=== PATIENT | female | born 1945 | race Caucasian/White ===

== ENCOUNTER → 2024-06-08 09:57 | Outpatient (REF) | payer MEDICARE, OTHER, SELFPAY ==
--- OUTSIDE RECORDS SUMMARY | 2024-06-08 10:42 | XMS_ITS | Encounter Summary ---
Author Organization [facility] Health Address [address] [place] [address] Care Team Providers Care Benchroom Shop Optician Name Role Phone Unavailable Primary Care Provider Unavailabl e Encounter Details Date Type Department Care Team (Late st Contact Info) Description 07/18/2019 Lab Requisition [facility] DermPath Lab [address] [place] [address] Asif Leal MD [address] [place] [phone] Social History Tobacco Use Types Packs/Day Years Used Date Smoking Tobacco: Former Cigarettes 1 35 1 06/25/1972 - 04/24/2008 Smokeless Tobacco: Never Alcohol Use Standard Drinks/Week Comments Yes 0 (1 standard drink = 0.6 oz pur e alcohol) social Sex and Gender Information Value Date Recorded Sex Assigned at Not on file Gender Identity Not on file Sexual Orientation Not on file documented as of this encounter Plan of Treatment Not on file documented as of this encounter Procedures Procedure Name Priority Date/Time Associated Diagnosis Comments DERMATOPATHOLOGY Routine 07/16/2019 12:0 0 AM CDT documented in this encounter Results * DERMATOPATHOLOGY (07/16/2019 12:00 AM CDT) Case Report Dermatopathology Report Case: [id number] Authorizing Provider: Asif Leal MD Collected: 07/16/2019 12:00 AM Ordering Location: [facility] Derm[facility] Lab Received: 07/18/2019 08:32 AM Pathologist: Myrna Maher MD Specimens: A) - Skin, right medial cheek B) - Skin, right distal forearm C) - Skin, left distal forearm 0 5:43 PM [facility] DERMATOPATHOLOGY LABORATORY Final Diagnosis Specimen A. SKIN, right medial cheek: HYPERPLASTIC (HYPERTROPHIC) ACTINIC KERATOSIS; EXTENDING TO THE BASE OF THE SPECIMEN (L57.0) (see microscopic description and comment) Specimen B. SKIN, right distal forearm: BENIGN VERRUCOUS KERATOSIS, INFLAMED (L82.1) Specimen C. 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 B: SK, lichenoid keratosis, SCCIS. C: R/O SCC. 0 5:43 PM [facility] DERMATOPATHOLOGY LABORATORY Gross Description Specimen A: Received is one formalin filled container labeled with the patient's name and designated right medial cheek. The specimen consists of a shave biopsy measuring 0p0a0cq. Jar 0. Specimen B: Received is one formalin filled container labeled with the patient's name and designated right distal forearm. The specimen consists of a shave biopsy measuring 2g1r4wz. Jar 0. Specimen C: Received is one formalin filled container labeled with the patient's name and designated left distal forearm. The specimen consists of a shave biopsy (2 pieces) measuring 8d8a1bs & 6f6y3jj. Jar 0. 0 5:43 PM [facility] DERMATOPATHOLOGY LABORATORY Microscopic Description Specimen A. SKIN, right medial cheek: There is hyperkeratosis alternating with parakeratosis. There is epidermal hyperplasia with disorderly maturation of keratinocytes with nuclear pleomorphism confined to the lower half of the epidermis. This process extends to the base of the specimen. COMMENT: A squamous cell carcinoma cannot be ruled out. Specimen B. SKIN, right distal forearm: Sections show hyperkeratosis, papillomatosis, hypergranulosis, and acanthosis. Inflammatory cells are present within the dermis. These histological findings can be seen in a verruca vulgaris or a seborrheic keratosis. Specimen C. SKIN, left distal forearm: The specimen is tangentially sectioned. The epidermis shows parakeratosis, full thickness disorderly maturation of keratinocytes, mitoses at different levels, and dyskeratotic cells. The lesion extends to the base of the biopsy. COMMENT: An invasive squamous cell carcinoma cannot be ruled out. 0 5:43 PM CDT DERMATOPATHOLOGY LABORATORY Disclaimer An external and internal positive and negative controls are appropriate for the histochemical, immunohistochemical and immunofluorescence stain(s) in this case (if any), except where stated explicitly. The performance characteristics of the stain(s) cited in this report were developed and its performance characteristic determined by the Dermatopathology Laboratory at [facility], directed by Dr. Mino Nickerson. These tests need not be, and therefore are not, approved by the [place] Food and Drug Administration. The tests are used for clinical purposes. Billing Codes Specimen Charges Stain Charges 69797 89530 36106 1 1 1 0 5:43 PM CDT DERMATOPATHOLOGY LABORATORY Embedded Images 0 5:43 PM CDT DERMATOPATHOLOGY LABORATORY Pathology/Cytology TISSUE SPECIMEN FROM SKIN / Unknown 07/16/2019 07/18/2019 8:32 AM CDT Miscellaneous samples (specimen) TISSUE SPECIMEN FROM SKIN / Unknown 07/16/2019 07/18/2019 8:32 AM CDT Miscellaneous samples (specimen) TISSUE SPECIMEN FROM SKIN / Unknown 07/16/2019 07/18/2019 8:32 AM CDT Asif Leal MD LAB - PATHOLOGY/CYTO LOGY ORDERABLES DERMATOPATHOLOGY LABORATORY [facility] - Department of Dermatology [address] [place] [address], [address] [place] [address], [facility] [phone] documented in this encounter Visit Diagnoses Not on filedocumented in this encounter
--- OUTSIDE RECORDS SUMMARY | 2024-06-08 10:42 | XMS_ITS | Patient Health Summary ---
Author Organization [facility] Address [address] [facility] [place] [address] Care Team Providers Care Senior Manager Asset Protection Name Role Phone Unavailable Primary Care Provider Unavailabl e Note from [facility] [employer] [facility],non-owned Affiliates and Associated Physician Practices is amultiple site organization consisting of ambulatory clinics and hospital sitesin [place], [place] and [place]. This disclosure is being madepursuant to the Care Everywhere program and may not contain all information available regarding this patient. Last updated 18.[facility] [employer] Allergies * Nickel(Itching) Medications * Be aware that medications may not be up to date on this document. Alwaysverify current medications with the patient. * azaTHIOprine (IMURAN) 50 MG tablet(Started 05/29/2010) Take 50 mg by mouth daily after breakfast. * betaxolol (BETOPTIC-S) 0.25 % ophthalmic suspension(Started 05/29/2010) Instill 1 Drop into both eyes daily after breakfast. * pilocarpine (PILOPINE HS) 4 % ophthalmic gel(Started 05/29/2010) Instill into both eyes every 2 days. Uses @@ night * buPROPion XL 24hr (WELLBUTRIN-XL) 300 MG tablet Take 300 mg by mouth every morning. * aspirin EC (ECOTRIN) 81 MG tablet Take 81 mg by mouth daily. Instructed patient to stop 1 week before surgery. * citalopram (CELEXA) 40 MG tablet(Started 05/29/2010) Take 40 mg by mouth daily after breakfast. * oxycodone, immediate release, (ROXICODONE) 5 MG tablet(Started 06/11/2010) Take 1-2 Tabs by mouth every 6 hours as needed for Pain. Active Problems No known active problems Immunizations * INFLUENZA VACCINE(Given 02/06/2010) * PNEUMOCOCCAL PPSV23(Given 06/12/2007) Social History Tobacco Use Types Packs/Day Years Used Date Smoking Tobacco: Former Cigarettes 1 35 1 06/25/1972 - 04/24/2008 Smokeless Tobacco: Never Alcohol Use Standard Drinks/Week Comments Yes 0 (1 standard drink = 0.6 oz pur e alcohol) social Sex and Gender Information Value Date Recorded Sex Assigned at Not on file Gender Identity Not on file Sexual Orientation Not on file Last Filed Vital Signs Vital Sign Reading Time Taken Comments Blood Pressure 116/61 06/12/2010 10:29 AM DINING ROOM HOSTESS Pulse 87 06/12/2010 10:29 AM DINING ROOM HOSTESS Temperature 36.8 C (98.3 F) 06/12/2010 10:29 AM DINING ROOM HOSTESS Respiratory Rate 16 06/12/2010 10:2 9 AM DINING ROOM HOSTESS Oxygen Saturation 95% 06/12/2010 10: 29 AM DINING ROOM HOSTESS Inhaled Oxygen Concentration - - Weight 87.5 kg (192 lb 14.4 oz) 06/09/2010 5:48 AM DINING ROOM HOSTESS Height 162.6 cm (5' 4 ) 06/09/2010 5:48 AM DINING ROOM HOSTESS Body Mass Index 33.11 06/09/2010 5:48 AM DINING ROOM HOSTESS Procedures * DERMATOPATHOLOGY(Performed 07/16/2019) * XR HIP RIGHT 2VW OR MORE(Performed 06/07/2011) Performed for S/P prosthetic total arthroplasty of the hip * LAB RESULTS ORDER(Performed 06/13/2010) * CARDIAC EKG ORDER(Performed 06/13/2010) * BASIC METABOLIC PANEL (CALCIUM TOTAL)(Performed 06/11/2010) * HGB HCT PANEL(Performed 06/11/2010) * BASIC METABOLIC PANEL (CALCIUM TOTAL)(Performed 06/10/2010) * HEPATIC FUNCTION PANEL(Performed 06/10/2010) * HGB HCT PANEL(Performed 06/10/2010) * XR PELVIS 1 OR 2VW(Performed 06/09/2010) Performed for Osteoarth NOS-pelvis Results * DERMATOPATHOLOGY (07/16/2019 12:00 AM CDT) Case Report Dermatopathology Report Case: [id number] Authorizing Provider: Asif Leal MD Collected: 07/16/2019 12:00 AM Ordering Location: [facility] DermPath Lab Received: 07/18/2019 08:32 AM Pathologist: Myrna Maher MD Specimens: A) - Skin, right medial cheek B) - Skin, right distal forearm C) - Skin, left distal forearm 0 5:43 PM [facility] DERMATOPATHOLOGY LABORATORY Final Diagnosis Specimen A. SKIN, [...] microscopic description and comment) 0 5:43 PM [facility] DERMATOPATHOLOGY LABORATORY Clinical History A: SCC vs SCCIS vs wart. B: SK, lichenoid keratosis, SCCIS. C: R/O SCC. 0 5:43 PM T DERMATOPATHOLOGY LABORATORY Gross Description Specimen A: Received is one formalin filled container labeled with the patient's name and designated right medial cheek. The specimen consists of a shave biopsy measuring 4y6d4mk. Jar 0. Specimen B: Received is one formalin filled container labeled with the patient's name and designated right distal forearm. The specimen consists of a shave biopsy measuring 0s0t5qb. Jar 0. Specimen C: Received is one formalin filled container labeled with the patient's name and designated left distal forearm. The specimen consists of a shave biopsy (2 pieces) measuring 0m3f3ba & 1r0y8el. Jar 0. 0 5:43 PM [facility] DERMATOPATHOLOGY LABORATORY Microscopic Description Specimen A. SKIN, [...] characteristic determined by the Dermatopathology Laboratory at [facility], directed by Dr. Mino Nickerson. These tests need not be, and therefore are not, approved by the [place] Food and Drug Administration. The tests are used for clinical purposes. Billing Codes Specimen Charges Stain Charges 58243 [id number] [id number] 1 1 1 0 5:43 PM CDT [...] LAB - PATHOLOGY/CYTO LOGY ORDERABLES DERMATOPATHOLOGY LABORATORY [facility] - Department of Dermatology [address] [place] [address], 5th [place] [address], [facility] [phone] * XR HIP 2+ VW RIGHT (06/07/2011 4:49 PM DINING ROOM HOSTESS) Anatomical Region Laterality Modality Pelvis, Lower Extremity Other Narrative 06/07/2011 4:49 PM DINING ROOM HOSTESS RT Alec 06/07/2011 4:49 PM See progress notes for results Procedure Note Mary Turner, RT - 06/07/2011 4:49 PM CST See progress notes for results Kg Gallo IV, MD DIAGNOSTIC IMAGING O RDERABLES * LAB RESULTS ORDER (06/13/2010 11:32 AM DINING ROOM HOSTESS) Narrative Procedure Note Document, Scanned - 06/13/2010 10:38 AM DINING ROOM HOSTESS Scanned Document LAB - THERAPEUTIC DR UG MONITORING ORDERABLES * CARDIAC EKG ORDER (06/13/2010 11:32 AM DINING ROOM HOSTESS) Narrative Procedure Note Document, Scanned - 06/13/2010 10:38 AM DINING ROOM HOSTESS Scanned Document CARDIAC SERVICES ORD ERABLES * (ABNORMAL) HGB HCT PANEL (06/11/2010 3:30 AM DINING ROOM HOSTESS) Only the most recent of2 resultswithin the time period is included. Pathologist [facility] Hemoglobin 10.3(L) 12.0 - 16.0 gm/dl [facility] Hematocrit 32.5(L) 36.0 - 48.0 % [facility] BLOOD SPECIMEN / Unknown 06/11/2010 3:30 AM DINING ROOM HOSTESS 06/11/2010 3:57 AM DINING ROOM HOSTESS Fransisco Singer MD LAB - HEMATOLOGY ORD ERABLES Performing Organization Address City/State/[facility] Co de Phone Number [facility] [address] [place] [address] * (ABNORMAL) BASIC METABOLIC PANEL (CALCIUM TOTAL) (06/11/2010 3:30 AM DINING ROOM HOSTESS) Only the most recent of2 resultswithin the time period is included. Pathologist [facility] BUN 23(DH) 7.0 - 17.0 mg/dl [facility] Sodium 135(L) 137 - 145 mmol/L [facility] Potassium 4.5 3.6 - 5.0 mmol/L [facility] Chloride 100 98.0 - 107.0 mmol/L [facility] CO2 31(H) 22.0 - 30.0 mEq/L [facility] Anion Gap 3 [facility] Glucose 113(H) 70 - 105 mg/dl [facility] Creatinine 0.8 0.52 - 1.05 mg/dl [facility] Calcium 8.9(DE) 8.4 - 10.2 mg/dl [facility] eGFR by MDRD 72.21 ml/min/1.7 3m2 [facility] BLOOD SPECIMEN / Unknown 06/11/2010 3:30 AM DINING ROOM HOSTESS 06/11/2010 3:57 AM DINING ROOM HOSTESS Fransisco Singer MD LAB - [facility]Y [facility] Performing Organization Address [facility] de Phone Number [facility] [id number] [place] [id number] * (ABNORMAL) HEPATIC FUNCTION PANEL (06/10/2010 3:15 AM DINING ROOM HOSTESS) AST 49(H) 14.0 - 36.0 U/L [facility] ALT 37 9.0 - 52.0 U/L [facility] Alkaline Phosphatase 59 38.0 - 126.0 U/L [facility] Bilirubin Total 0.3 0.2 - 1.3 mg/dl [facility] Albumin 3.9 3.5 - 5.0 gm/dl [facility] Bilirubin Indirect 0.3 0.0 - 1.1 mg/dl [facility] Bilirubin Direct 0.0 0.0 - 0.3 mg/dl [facility] Protein Total 6.8 6.3 - 8.2 gm/dl [facility] BLOOD SPECIMEN / Unknown 06/10/2010 3:15 AM DINING ROOM HOSTESS 06/10/2010 3:40 AM DINING ROOM HOSTESS Fransisco Singer MD LAB - CHEMISTRY JANE BO Performing Organization Address [facility] de Phone Number [facility] [address] [place] [address] * XR PELVIS 1 OR 2 VW (IN PACU) (06/09/2010 10:41 AM DINING ROOM HOSTESS) Anatomical Region Laterality Modality Pelvis Radiographic Leann ging 06/09/2010 12:4 9 PM DINING ROOM HOSTESS Impressions 06/09/2010 12:49 PM DINING ROOM HOSTESS Right total hip arthroplasty Narrative 06/09/2010 12:49 PM DINING ROOM HOSTESS INDICATION: Pelvic pain Single AP view of the pelvis shows a right total hip arthroplasty. There is no fracture. There is degenerative change of the left hip joint. Surgical drains are noted. No complication is evident. Procedure Note Rylie Allan MD - 06/09/2010 INDICATION: Pelvic pain Single AP view of the pelvis shows a right total hip arthroplasty. There is no fracture. There is degenerative change of the left hip joint. Surgical drains are noted. No complication is evident. IMPRESSION Right total hip arthroplasty Fransisco Singer MD DIAGNOSTIC IMAGING O RDERABLES
--- OUTSIDE RECORDS SUMMARY | 2024-06-08 10:42 | XMS_ITS | Encounter Summary ---
Author Organization [facility] Address [address] [place] [address] Care Team Providers Care Retrieval Specialist Name Role Phone Darling Salgado MD Primary Care Provider [phone] Mary Anne Armando OD Unavailable Francis Zapata MD Unavailable [phone] Gianni Diaz MD Unavailable Vicki Roe MD Unavailable [phone] Reason for Visit * Reason Onset Date Comments Diarrhea 06/07/2024 Encounter Details Date Type Department Care Team (Late st Contact Info) Description 06/07/2024 Telephone [facility] [address] [place] [address] Darling Salgado MD [address] [place] [address] Diarrhea Social History Tobacco Use Types Packs/Day Years Used Date Smoking Tobacco: Former Smokeless Tobacco: Never Comments:Quit 2001 - 2003 Alcohol Use Standard Drinks/Week Comments Yes 2 (1 standard drink = 0.6 oz pur e alcohol) occassional AUDIT-C Answer Date Recorded Q1: How often do you have a drink containing alcohol? Never 06/23/2023 Q2: How many drinks containi ng alcohol do you have on a typical day when you are drinking? Patient does not drink Q3: How often do you have si x or more drinks on one occasion? Never 06/23/2023 PHQ-2 Answer Date Recorded PHQ-2 Total Score (If total score is 3 or more points, staff should administer the PHQ-9) 0 05/15/2024 Personal Safety Answer Date Recorded Have you ever been in or are you currently in a harmful physical or emotional relationship or is someone making you feel afraid or unsafe? 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 She voiced understanding. Advised her to call if she does not have any improvement and she voiced understanding. PAPER PRINTER * Telephone Encounter - Leonid Bui RN - 06/07/2024 3:26 PM CST Attempted to call pt Na/tobias latify Cbn#[phone] PAPER PRINTER * Telephone Encounter - Leonid Bui RN - 06/07/2024 1:32 PM CST Attempted to call pt Na/line bhavyay Cbn#[phone] PAPER PRINTER * Telephone Encounter - Marlene Kelley NP - 06/07/2024 11:02 AM CST This is likely overflow constipation due to her mounjaro use. She should hold this week's dose to see if symptoms improve. And try miralax 1-3 times daily. avoid nuts, beans, broccoli, cauliflower, green beans, potato skins, and bran. Stay hydrated. Encourage natural laxatives such as prunes, applejuice, smooth move tea, coffee, and probiotics. PAPER PRINTER * Telephone Encounter - Missy Chang RN - 06/07/2024 10:23 AM WALLPAPER PRINTER TOGKL: Called patient about diarrhea. Symptoms started yesterday: Explosive diarrhea-5 x yesterday She has also had a lot of belching with a horrible smell. Has had some nausea but it feels better after having a BM. She said late last night she had some formation to her stools and she has not had any diarrhea since then. Patient said she has noticed a horrible smell with the diarrhea. Denied vomiting. She is keeping fluids down and following a BRAT diet. Please advise PAPER PRINTER * Telephone Encounter - Lucy Mahajan - 06/07/2024 8:20 AM CST Pt is calling because she is having explosive diarrhea. This has been happing off and on for a little while. Pt stated this has been happing off and on for a while now. [facility]# [phone]- pt's cell PAPER PRINTER documented in this encounter Plan of Treatment Not on file documented as of this encounter Visit Diagnoses Not on filedocumented in this encounter Care Teams Retrieval Specialist Relationship Specialty Start Date End Date Darling Salgado MD PCP - General 07/30/16 Mary Anne Armando OD Washer Hand 03/09/17 Francis Zapata MD Consulting Physician Pulmonary Disease 03/09/17 Gianni Diaz MD [address] [place] [address] [place] [address] Consulting Physician Gastroenterology 03/14/23 Vicki Roe MD [address] [place] [address] Referring Physician Dermatology 06/14/23 documented as of this encounter
--- OUTSIDE RECORDS SUMMARY | 2024-06-08 10:42 | XMS_ITS | Clinical Summary ---
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
--- OUTSIDE RECORDS SUMMARY | 2024-06-08 10:42 | XMS_ITS | Referral Summary ---
Author Organization [facility] [employer] Address [address] [place] [address] Care Team Providers Care Equipment Operation Instructor Name Role Phone Unavailable Primary Care Provider Unavailabl e Source Comments [facility] [employer],non-owned Affiliates and Associated Physician Practices is amultiple site organization consisting of ambulatory clinics and hospital sitesin [place], [place], [place] and [place]. This disclosure is being madepursuant to the Care Everywhere program and may not contain all information available regarding this patient. Last updated 18.[facility] [employer] Allergies Active Allergy Reactions Criticality Noted Date Comments Nickel Itching 05/29/2010 Medications * Be aware that medications may not be up to date on this document. Alwaysverify current medications with the patient. Medication Sig Dispensed Refills Start Date End Date Status azaTHIOprine (IMURAN) 50 MG tablet Take 50 mg by mouth daily after breakfast. 05/29/2010 Active betaxolol (BETOPTIC-S) 0.25 % ophthalmic suspension Instill 1 Drop into both eyes daily after breakfast. 05/29/2010 Active pilocarpine (PILOPINE HS) 4 % ophthalmic gel Instill into both eyes every 2 days. Uses @@ night 05/29/2010 Active buPROPion XL 24hr (WELLBUTRIN-XL) 300 MG tablet Take 300 mg by mouth every morning. Active aspirin EC (ECOTRIN) 81 MG tablet Take 81 mg by mouth daily. Instructed patient to stop 1 week before surgery. Active citalopram (CELEXA) 40 MG tablet Take 40 mg by mouth daily after breakfast. 05/29/2010 Active oxycodone, immediate release, (ROXICODONE) 5 MG tablet Take 1-2 Tabs by mouth every 6 hours as needed for Pain. 80 Tab 0 06/11/2010 Active Active Problems No known active problems Immunizations Name Administration Dates Next Due INFLUENZA VACCINE 02/06/2010 PNEUMOCOCCAL PPSV23 06/12/2007 Social History Tobacco Use Types Packs/Day Years [...] Comments Blood Pressure 116/61 06/12/2010 10:29 AM PHYTOCHEMISTRY PROFESSOR Pulse 87 06/12/2010 10:29 AM PHYTOCHEMISTRY PROFESSOR Temperature 36.8 C (98.3 F) 06/12/2010 10:29 AM PHYTOCHEMISTRY PROFESSOR Respiratory Rate 16 06/12/2010 10:2 9 AM PHYTOCHEMISTRY PROFESSOR Oxygen Saturation 95% 06/12/2010 10: 29 AM PHYTOCHEMISTRY PROFESSOR Inhaled Oxygen Concentration - - Weight 87.5 kg (192 lb 14.4 oz) 06/09/2010 5:48 AM PHYTOCHEMISTRY PROFESSOR Height 162.6 cm (5' 4 ) 06/09/2010 5:48 AM PHYTOCHEMISTRY PROFESSOR Body Mass Index 33.11 06/09/2010 5:48 AM PHYTOCHEMISTRY PROFESSOR Plan of Treatment Not on file Advance Directives Documents on File Type Date Recorded Patient Coupler Expl anation Adv Directive/Living Will/POA 06/13/2010 10:38 AM * Full Code (Latest Code Status on File) Date Activated Date Inactivated Comments 06/09/2010 11:59 AM 06/13/2010 4:05 AM
--- OUTSIDE RECORDS SUMMARY | 2024-06-08 10:42 | XMS_ITS | Clinical Summary ---
Author Organization [email or web address] Address [address] [place] [address] Care Team Providers Care Billboard Mechanic Name Role Phone Unavailable Primary Care Provider Unavailabl e Source Comments [email or web address],non-owned Affiliates and Associated Physician Practices is amultiple site organization consisting of ambulatory clinics and hospital sitesin [place], [place], [place] and [place]. This disclosure is being madepursuant to the Care Everywhere program and may not contain all information available regarding this patient. 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 Pulse 87 06/12/2010 10:29 AM FOOD SERVICE EMPLOYEE Temperature 36.8 C (98.3 F) 06/12/2010 10:29 AM FOOD SERVICE EMPLOYEE Respiratory Rate 16 06/12/2010 10:2 9 AM FOOD SERVICE EMPLOYEE Oxygen Saturation 95% 06/12/2010 10: 29 AM FOOD SERVICE EMPLOYEE Inhaled Oxygen Concentration - - Weight 87.5 kg (192 lb 14.4 oz) 06/09/2010 5:48 AM FOOD SERVICE EMPLOYEE Height 162.6 cm (5' 4 ) 06/09/2010 5:48 AM FOOD SERVICE EMPLOYEE Body Mass Index 33.11 06/09/2010 5:48 AM FOOD SERVICE EMPLOYEE Plan of Treatment Health Maintenance Due Date Last Done Comments BONE DENSITY TESTING 1945 MEDICARE AWV 12 MONTHS 1945 COVID-19 VACCINE (#1) 1951 HEPATITIS C SCREENING 01/20/1964 DTAP/TDAP/TD VACCINES (1 - Tdap) 1965 ZOSTER VACCINE (1 of 2) 1965 PNEUMOCOCCAL VACCINE 50+ (2 of 2 - PCV) 06/12/2008 06/12/2007 Respiratory Syncytial Virus (RSV) Vaccine Pt: or over 60 yrs (1 - 1-dose 75+ series) 2021 INFLUENZA VACCINE (#1) 2024 02/06/2010 DEPRESSION SCREENING 05/02/2024 HEPATITIS B VACCINE Aged Out No longe r eligible based on patient's age to complete this topic HIB VACCINE Aged Out No longer eligi ble based on patient's age to complete this topic HPV VACCINE Aged Out No longer eligi ble based on patient's age to complete this topic MENINGOCOCCAL (Group B) VACCINE Aged Out No longer eligible based on patient's age to complete this topic MENINGOCOCCAL VACCINE Aged Out No ridge dayron eligible based on patient's age to complete this topic Advance Directives Documents on File Type Date Recorded Patient Supervisor Beam Department Expl anation Adv Directive/Living Will/POA 06/13/2010 10:38 AM * Full Code (Latest Code Status on File) Date Activated Date Inactivated Comments 06/09/2010 11:59 AM 06/13/2010 4:05 AM
--- OUTSIDE RECORDS SUMMARY | 2024-06-08 10:43 | XMS_ITS | Encounter Summary ---
Author Organization [facility] Address [address] [place] [address] Phone Care Team Providers Care Recreation Counselor Name Role Phone Darling Salgado MD Primary Care Provider [phone] Napoleon Villavicencio Unavailable Unavail able Mary Anne Armando OD Unavailable [phone] Francis Zapata MD Unavailable [phone] Maksim Regalado MD Unavailable + Sanya Andrews MD Unavailable [phone] Zak Borrero MD Unavailable Gianni Diaz MD Unavailable Vicki Roe MD Unavailable [phone] Encounter Details Date Type Department Care Team (Late st Contact Info) Description 08/18/2017 Orders Only [facility] [address] [place] [address] Darling Salgado MD [address] [place] [address] Social History Tobacco Use Types Packs/Day Years Used Date Smoking Tobacco: Former Smokeless Tobacco: Never Comments:Quit 2001 - 2003 Alcohol Use Standard Drinks/Week Comments Yes 2 (1 standard drink = 0.6 oz pur e alcohol) occassional Comments No Sex and Gender Information Value Date Recorded Sex Assigned at Not on file 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 Gender Identity Not on file Sexual Orientation Not on file documented as of this encounter Plan of Treatment Not on file documented as of this encounter Procedures Procedure Name Priority Date/Time Associated Diagnosis Comments PULMONARY - RESULT SCAN 05/01/2018 11:45 AM TUMBLER MACHINE OPERATOR SCAN - RADIOLOGY/IMAGING 08/18/2017 11:14 AM CDT documented in this encounter Results * PULMONARY - RESULT SCAN (05/01/2018 11:45 AM TUMBLER MACHINE OPERATOR) Anatomical Region Laterality Modality Other us Darling Salgado MD Final Resu lt * SCAN - RADIOLOGY/IMAGING (08/18/2017 11:14 AM CDT) Anatomical Region Laterality Modality Other us Darling Salgado MD Final Resu lt documented in this encounter Visit Diagnoses Not on filedocumented in this encounter Additional Health Concerns Infection Onset Date Last Indicated Resolved Time COVID: Suspected 07/09/2020 07/09/2020 07/09/2020 2:11 PM TUMBLER MACHINE OPERATOR COVID: Suspected 12/01/2021 12/01/2021 12/01/2021 3:02 PM CDT COVID: Suspected 06/24/2022 06/24/2022 06/24/2022 8:45 AM TUMBLER MACHINE OPERATOR documented as of this encounter Care Teams Recreation Counselor Relationship Specialty Start Date End Date Darling Salgado MD PCP - General 07/30/16 Napoleon Villavicencio Gastroenterology 03/05/17 06/13/23 Mary Anne Armando OD Produce Weigher 03/09/17 Francis Zapata MD Consulting Physician Pulmonary Disease 03/09/17 Maksim Regalado MD [address] [place] [address] Consulting Physician Gastroenterology 03/09/17 06/13/23 Sanya Andrews MD [address] [place] [address] Gastroenterology 03/09/17 06/13/23 Zak Borrero MD [address] [place] [address] Surgeon Orthopedic Surgery 05/13/17 06/13/23 Gianni Diaz MD [address] [place] [address] Consulting Physician Gastroenterology 03/14/23 Vicki Roe MD [address] [place] [address] Referring Physician Dermatology 06/14/23 documented as of this encounter
--- OUTSIDE RECORDS SUMMARY | 2024-06-08 10:43 | XMS_ITS | Clinical Summary ---
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 Gender Identity Not on file Sexual Orientation Not on file Plan of Treatment Health Maintenance Due Date Last Done Comments Hepatitis C 01/25/1964 DTaP, Tdap and Td Vaccines ( 1 - Tdap) 1965 Zoster Vaccines (1 of 2) 01/25/1996 Dexa Scan (General) 2011 Pneumococcal Vaccine: 65+ Ye ars (1 of 1 - PCV) 2011 RSV Immunization or 60+ Years (1 - 1-dose 75+ series) 2021 COVID-19 Vaccine (2023-2 5 season) 2024 Influenza Adult (#1) 2024 Meningococcal B Vaccine Aged Out No l onger eligible based on patient's age to complete this topic Meningococcal Vaccine Aged Out No ridge dayron eligible based on patient's age to complete this topic RSV Immunizations Under 20 Months Aged Out No longer eligible based on patient's age to complete this topic
--- OUTSIDE RECORDS SUMMARY | 2024-06-08 10:43 | XMS_ITS | Clinical Summary ---
Author Organization [facility] Address [address] [place] [address] Care Team Providers Care Drop Pit Worker Name Role Phone Darling Barillas MD Primary Care Provider [phone] Mary Anne Armando OD Unavailable [phone] Francis Zapata MD Unavailable [phone] Gianni Diaz MD Unavailable Vicki Roe MD Unavailable [phone] Allergies Active Allergy Reactions Criticality Noted Date Comments Nickel Itching Low 05/29/2010 Medications dorzolamide-timol ol (COSOPT) 22.3-6.8 mg/mL ophthalmic solution Administer 1 drop into both eyes 2 (two) times a day Active meclizine (ANTIVERT) 12.5 mg tabletIndications :Left otitis media, unspecified otitis media type,Vertigo Take 1 tablet (12.5 mg total) by mouth 3 (three) times a day as needed for dizziness 90 tablet 022 Active blood-glucose meter misc Use once daily monitoring of diabetes. E11.9 dispense brand covered by insurance 1 each 023 Active acetaminophen ER (TYLENOL) 650 mg 8 hr tablet Take 1 tablet (650 mg total) by mouth every 8 (eight) hours as needed for pain Active hydroCHLOROthiazi de (MICROZIDE) 12.5 mg capsule Take 1 capsule (12.5 mg total) by mouth daily Active blood glucose diagnostic (glucose blood) stripIndications: Type 2 diabetes mellitus without complication, without long-term current use of insulin ([facility]) ([facility]) 1 each by other route as directed To monitor glucose levels once daily E11.9 dispense brand covered by insurance 100 each 3 024 Active metFORMIN XR (GLUCOPHAGE XR) 500 mg 24 hr tabletIndications :Type 2 diabetes mellitus without complication, without long-term current use of insulin ([facility]) ([facility]) Take 1 tablet (500 mg total) by mouth daily with dinner 90 tablet 2 024 2024 Active lancets 31 gauge miscIndications:T ype 2 diabetes mellitus without complication, without long-term current use of insulin ([facility]) ([facility]) 1 each 3 (three) times a week Once dailyTo monitor glucose levels E11.9 dispense brand covered by insurance 100 each 1 024 Active buPROPion XL (WELLBUTRIN XL) 300 mg 24 hr tabletIndications :Mood disorder ([facility]) Take 1 tablet (300 mg total) by mouth every morning 90 tablet 2 024 Active Additional Information Patient not taking.Reported on 06/05/2024 rosuvastatin (CRESTOR) 10 mg tabletIndications :Type 2 diabetes mellitus without complication, without long-term current use of insulin ([facility]) ([facility]),Multiple-ty pe hyperlipidemia Take 1 tablet (10 mg total) by mouth daily 90 tablet 1 024 Active tirzepatide (Mounjaro) 10 mg/0.5 mL pen injector injection Inject 0.5 mL (10 mg total) under the skin once a week 2 mL 1 025 Active tirzepatide (Mounjaro) 7.5 mg/0.5 mL pen injectorIndicatio ns:Type 2 diabetes mellitus without complication, without long-term current use of insulin ([facility]) ([facility]),Class 1 obesity due to excess calories with serious comorbidity and body mass index (BMI) of 33.0 to 33.9 in adult Inject 7.5 mg under the skin once a week 2 mL 1 024 2024 Discontinued tirzepatide (Mounjaro) 10 mg/0.5 mL pen injector Inject 10 mg under the skin once a week 2 mL 1 025 2024 Discontinued(R ryan) Active Problems Problem Noted Date Diagnosed Date Class 1 obesity due to exces s calories with serious comorbidity and body mass index (BMI) of 33.0 to 33.9 in adult 03/06/2024 Assessment & Plan (05/20/2024 1:36 PM MATERIAL EXPEDITOR): Chronic, improving. Up 2 lb in the last months on Mounjaro. BMI currently at 34.1. CMP LDL and A1c from March unremarkable. No acute findings on exam. Increase Mounjaro 10 mg dose. Continue heart healthy diet and exercise as discussed. Follow in 1 month Assessment & Plan (04/11/2024 8:56 AM MATERIAL EXPEDITOR): Chronic, improving. She is down 9 lb in the last months after starting Mounjaro. BMI currently at 33.8. CMP LDL and A1c from last month unremarkable. No acute findings on exam. Increase Mounjaro 7.5 mg dose. Continue heart healthy diet and exercise as discussed. Follow in 1 month Assessment & Plan (03/06/2024 8:51 AM MATERIAL EXPEDITOR): Chronic, improving. She is down 9 lb in the last months after starting Mounjaro. BMI currently at 35.4. CMP LDL and A1c from December noted. No acute findings on exam. Increase Mounjaro 2 5 mg dose. Continue heart healthy diet and exercise as discussed. Follow in 1 month Heartburn 05/31/2023 Sigmoid diverticulitis 04/11/2023 Family history of colon cancer 03/07/2023 Personal history of colonic polyps 03/07/2023 Encounter for screening colonoscopy 03/07/2023 History of acute pancreatitis 03/01/2023 Overview (06/11/2023): Hospitalization 03/01/2023 idiopathic pancreatitis Postural kyphosis of cervicothoracic region 12/01 Disorder of right rotator cuff 12/23/2022 Hx of adenomatous colonic polyps 12/23/2022 Type 2 diabetes mellitus wit hout complication, without long-term current use of insulin ([facility]) 12/25/2020 Assessment & Plan (05/20/2024 1:35 PM MATERIAL EXPEDITOR): Chronic, controlled. Last A1c from March was down 5.8. Up 2 lbs in last month. BMI at 34.1- blames holidays. Mild indigestion controlled with qvxf-hna-cbunslm medicines. No acute findings on exam, vitals stable. We will increase Mounjaro 10 mg dose. Continue metformin as prescribed. Follow in 1 month. Assessment & Plan (04/11/2024 8:55 AM MATERIAL EXPEDITOR): Chronic, controlled. Last A1c from March was down 5.8. She is down 9 lbs in last month. BMI at 33.8. Mild indigestion controlled with przr-aym-skqkzkg medicines. Diarrhea for the last 2-3 days-unsure if related to mounjaro or not. No acute findings on exam, vitals stable. We will increase Mounjaro 7.5 mg dose. Continue metformin as prescribed. Follow in 1 month. Assessment & Plan (03/06/2024 8:50 AM MATERIAL EXPEDITOR): Chronic, controlled. Last A1c from December was 6.1. She is down 9 lb since starting the Mounjaro last month. BMI at 35.4. Mild indigestion controlled with upwg-ifm-yivrfak medicines. No acute findings on exam, vitals stable. We will increase Mounjaro 2 5 mg dose. Continue metformin as prescribed. Follow in 1 month with repeat BMP before Cervical stenosis of spinal canal 09/29/2019 Overview (09/29/2019): CT NECK SPINAL STENOSIS AND SEVERE FORAMINA STENOSIS AUGUST 2019 IMPRESSION: 1. No acute fracture. 2. Moderate C3-C7 degenerative disc disease with posterior disc osteophyte complexes resulting in osseous central canal stenosis and narrowing of the right lateral recesses at C4-C7. 3. Severe right-sided C4-C7 foraminal impingement. 09/06/2019 2:55 PM - Electronically signed by Star Santana Coronary artery calcification seen on CAT scan 0 09/29/2019 Overview (09/29/2019): There is coronary artery calcification. 04/03/2019 8:00 AM MPRESSION: 1. Lung-RADS category 1, Negative. Continue annual screening with LDCT in 12 months. 2. Healed granulomatous disease in the right upper and middle lobes. 3. Coronary artery disease. 4. Cholecystectomy. 5. Left adrenal adenoma is stable. Electronically signed by: Tiago Amos M.D. Chronic open angle glaucoma 03/05/2017 Overview (03/09/2017): Managed by Dr. Keshia Armando Autoimmune hepatitis (CMS/HCC) 09/15/2013 Overview (01/23/2024): Autoimmune hepatitis previously followed by Dr. Andrews, care deferred to my office on less liver enzymes go back diagnosed in 2011 with viral hepatitis excluded Obstructive sleep apnea syndrome 09/15/2013 Overview (09/29/2019): Manage bY Karlene at Dr. Zapata's office [facility] with visits twice yearly as of the discussion March 2017 Mood disorder 07/28/2007 Resolved Problems Problem Noted Date Diagnosed Date Resolved Date Acute pancreatitis 05/31/2023 Personal history of colonic polyps 03/07/2023 03/14/2023 Encounter for screening colonoscopy 03/07/2023 03/14/2023 Bilateral edema of lower extremity 11/02/2022 03/14/2023 Assessment & Plan (11/15/2022 9:06 AM CDT): Improved after starting HCTZ, still has trace swelling to BLE, no acute findings on exam. recent labs unremarkable. Will refill HCTZ 12.5mg daily. Elevated feet as much as possible. Compression stockings may help especially when you know you will be on feet for extended periods of time. Assessment & Plan (11/02/2022 12:35 PM CDT): Worse in last 2 weeks, localized to feet/ankles. No acute findings on exam, likely due to venous insufficiency. will rx HCTZ 12.5mg daily. Elevate legs as much as possible. Compression socks may help also. Follow in 2 weeks with CMP, BnP, and CBC before follow. Left acute otitis media 12/01/202106/02 Assessment & Plan (12/01/2021 2:50 PM CDT): Presents with URI symptoms x1 week. Exam as noted above, findings suggestive of acute otitis. Will treat with Augmentin. Encouraged strict sinus care and antihistamine use. Follow up as scheduled or sooner if needed. Viral URI with cough 12/01/2021 023 Assessment & Plan (06/24/2022 8:46 AM MATERIAL EXPEDITOR): Symptoms for 3 days. Tested negative for COVID and FLU in office today. No significant exam findings. Likely viral. Encouraged Flonase use for inflammation and ear pain. Use OTC meds as needed for cough. Discussed mucinex to help thin mucous. Tylenol/Ibuprofen as needed for pain. Increase fluids (water) Cool mist humidifier at night Use sinus rinses to help flush bacteria and help with congestion. Encouraged honey, marshmallows, or chloraseptic to help coat throat. Call with any worsening or persistent symptoms. Assessment & Plan (12/01/2021 2:52 PM CDT): Patient presents with URI symptoms of congestion, sore throat, cough and post nasal drip x 1 week. She was tested for flu and covid today which were negative. She was encouraged to continue with symptom management. She will call or return with worsening or persistent symptoms. Sore throat 12/01/2021 06/16/2022 Assessment & Plan (12/01/2021 2:51 PM CDT): Patient has sore throat with pharyngeal erythema, most likely secondary to post nasal drip. We did swab for strep which was negative. Encouraged tylenol for pain, along with lozenges and salt water rinses. She will call with any worsening or persistent symptoms. Right hip pain 09/26/2020 11/02/2022 Assessment & Plan (10/17/2020 8:49 AM CDT): Hip pain is improved since last visit, as well as ROM. She reports that the medrol anh did help. She is currently doing PT at [facility] and will do that for about 5 more weeks. She will call me if she feels that she needs more visits. Continue with current plan of PT and tylenol PRN. Assessment & Plan (09/26/2020 4:01 PM CDT): Hx hip replacement at least 10 years ago. We will get an x-ray today. I have offered her for pain ibuprofen, tylenol and/or a medrol anh. She would like to try the medrol anh. She will also go for PT in [place]. This could be arthritis, sciatic pain, muscle pain, bursitis. She will f/u with me in 3-4 weeks after starting therapy. Right buttock pain 09/26/2020 Assessment & Plan (10/17/2020 8:50 AM CDT): Pt c/o ischial pain. This pain is improved but she reports that PT did make her pretty sore. She will use tylenol PRN for the pain. She is going to continue with PT, and will call if she decides she needs more visits after completing the 6 weeks. F/U with Dr. MICHAEL at November 26 appt. Assessment & Plan (09/26/2020 4:01 PM CDT): We will also get an x-ray of the pelvis as well. She will go to PT in [place] for this. Not sure if the pain is due to arthritis or sciatic nerve pain, or ischial bursitis. Medrol anh may help with inflammation in this area. Flank pain, acute 07/22/2020 11/26/2020 Assessment & Plan (07/22/2020 8:44 AM CDT): Patient is reporting acute bilateral flank pain that began 2 days ago and intensified this am. She does report urinary symptoms of urgency and frequency as well. There is concern for possible UTI and renal stones. Given her pain, fever and chills we will do labs, UA and CT/KUB stone protocol to r/o any signs of obstructing stone. She was encouraged to increase her fluid intake. She can use tylenol for any pain or fevers. She is to call or go to ER with worsening or persistent symptoms. Fever 07/09/2020 11/26/2020 Assessment & Plan (07/22/2020 8:39 AM CDT): Patient reports that this am she woke up with flank pain, chills and temperature up to 102. Most likely secondary to underlying urinary infection. There is concern for possible renal stone with her reports of fever and acute back pain. We will do CBC, BMP and UA today to look for sources of infection. She can continue with tylenol for pain or fever. Assessment & Plan (07/09/2020 2:53 PM MATERIAL EXPEDITOR): Covid-19 test= negative Influenza= negative Diarrhea, fever, and body aches since Tuesday. We have discussed options today for treatment. If this is viral, supportive care would be the best ie hydration, tylenol, bowel rest. We can investigate further with labs and x-rays today. Pt declines and states that she will call back in the next few days if not better, and then she would do labs/xray. I have advised bowel rest over the next 12-18 hours, tylenol, and hydration. If bowel rest goes good, she can tolerate diet as tolerated to a BRAT diet with soft bland foods. If she has worsening symptoms like persistent fever, abdominal pain, vomiting, she should go to the ER. COVID-19 virus detected 03/04/2020 07/0 07/2022 Overview (05/27/2020): Ongoing fatigue since the illness as of May 27 2020. 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 No mass effect or midline shift. Scattered periventricular and subcortical white matter hypoattenuation is present, nonspecific, but most likely related to chronic microangiopathy. The ventricles and hemispheric sulci are symmetric with age-appropriate volume loss. 09/06/2019 2:32 PM - Electronically signed by Lewis Orellana M.D. THIS IS AN ELECTRONICALLY VERIFIED FINAL REPORT 09/06/2019 2:32 PM - Electronically signed by Lewis Orellana M.D. Lewis Orellana M.D Closed head injury 09/06/2019 1 Cervical strain, acute, initial encounter 09/06/2019 09/29/2019 Jaw sprain, initial encounter 09/06/2019 09/29/2019 Urge urinary incontinence 09/26/2018 Obesity (BMI 30-39.9) 03/05/20172024 Anxiety and depression 09/15/201303/09 Overview (08/06/2016): Depression with anxiety Shortness of breath 05/27/19 Overview (05/27/2018): Images from the original note were not included. STRESS TEST (-) May 26, 2018 Conclusions: 1. Adequate stress test in regards to heart rate. 2. No exercise induced chest pain. 3. Maximal exercise ECG that is negative for ischemia. Dr Jaun Estrada 2018-05-26 17:12:17 MATERIAL EXPEDITOR LABS D-dimer (+), CT pulmonary angiogram (-), PFTs (-) no bronchi daily response, echocardiogram normal LV EF 70% Stress testing pending May 01, 2018 CT pulmonary angiogram (-) for PE IMPRESSION: 1. NO DEFINITE CT EVIDENCE OF PULMONARY EMBOLISM. 2. HEPATIC STEATOSIS. 3. PRIOR CHOLECYSTECTOMY. 4. LEFT ADRENAL NODULE, NO CHANGE. Electronically signed by: Luis Angel Randall M.D echocardiogram (-) April 2018 Conclusions: Normal left ventricular size. Normal global left ventricular systolic function. Ejection fraction is measured at 60 %. There is an anterior echo free space consistent with epicardial fat pad. Normal Doppler with normal valvular structure and function. Electronically Signed By: Naresh Orellana MD, [facility] 2018-04-27 09:38:04 MATERIAL EXPEDITOR Solitary pulmonary nodule Overview (09/29/2019): Turned into a granulomatous nodules and no further on calcified nodules as of the 2018 CT The lungs are well expanded. There are calcified granulomata in the right upper and middle lobes. No evidence of a noncalcified pulmonary nodule or mass lesion. Electronically signed by: Tigao Amos M.D.04/03/2019 Chronic obstructive pulmonary disease 11/26/2020 Encounters Date Type Department Care Team Description 06/07/2024 Telephone [facility] [address] [place] [address] Darling Barillas MD Diarrhea 06/05/2024 9:30 AM MATERIAL EXPEDITOR Office Visit [facility] [address] [place] [address] Marlene Kelley NP Type 2 diabetes mellitus without complication, without long-term current use of insulin (CMS/HCC) (HCC) (Primary Dx); Class 1 obesity due to excess calories with serious comorbidity and body mass index (BMI) of 33.0 to 33.9 in adult 05/15/2024 9:30 AM MATERIAL EXPEDITOR Office Visit [facility] [address] [place] [address] Marlene Kelley NP Type 2 diabetes mellitus without complication, without long-term current use of insulin (CMS/HCC) (HCC) (Primary Dx); Class 1 obesity due to excess calories with serious comorbidity and body mass index (BMI) of 34.0 to 34.9 in adult 04/11/2024 8:30 AM MATERIAL EXPEDITOR Office Visit [facility] [address] [place] [address] Marlene Kelley NP Type 2 diabetes mellitus without complication, without long-term current use of insulin (CMS/HCC) (HCC) (Primary Dx); Class 1 obesity due to excess calories with serious comorbidity and body mass index (BMI) of 33.0 to 33.9 in adult 03/28/2024 9:50 AM MATERIAL EXPEDITOR Lab [facility] [address] [place] [address] Type 2 diabetes mellitus without complication, without long-term current use of insulin (CMS/HCC) (HCC); Class 2 severe obesity with serious comorbidity and body mass index (BMI) of 36.0 to 36.9 in adult, unspecified obesity type (HCC); Cervical stenosis of spinal canal; Lymphedema 03/21/2024 Telephone [facility] [address] [place] [address] Darling Barillas MD Diarrhea from Last 3 Months Immunizations Name Administration Dates Next Due Influenza, Quadrivalent, Hig h Dose, Preservative Free, Intrr 03/06/2023,01/26/2022,03/17/2021,03/11 Influenza, Quadrivalent, Spl it, Intramuscular 03/09/2017 Influenza, Split 02/12/2013 Influenza, Trivalent, High D ose, Split, Preservative Free, Intramuscular 04/11/2024,03/17/2019,01/20/2018,01/21 Influenza, Trivalent, IM (MDV) 02/28/2015 Influenza, Unspecified 01/26/2022,2020,03/11/2020,02/06 Moderna SARS-CoV-2 Monovalen t Vaccination (12+ YRS) 04/03/2021,07/22/2020,06/24/2020 Pneumococcal Conjugate PCV 13 05/29/2014 Pneumococcal Conjugate Pcv20 01/25/2024 Pneumococcal Polysaccharide PPV23 09/06/2016,,06/12/2007 RSV Vaccine, Pref, Recombina nt, Subunit, Adjuvanted, PF, IM (Arexvy) 01/25/2024 Tdap 06/10/2021,05/24/2011 ZOSTER LIVE 07/26/2008 ZOSTER Recombinant 08/25/2018,04/14/2018 Surgical History Surgery Date Site/Laterality Comments CARPAL TUNNEL RELEASE Carpal tunnel release HIP ARTHROPLASTY 05/02/2010 - 05/01/2011 Hip replacement TOTAL ABDOMINAL HYSTERECTOMY W/ BILATERAL SALPINGOOPHORECTOMY 05/02/1989 - 05/01/1990 Hysterectomy, total abdominal, BSO CATARACT EXTRACTION Cataract extraction CHOLECYSTECTOMY 05/02/1986 - 05/01/1987 Cholecystectomy BARIATRIC SURGERY 05/02/2002 - 05/01/2003 surg. devin mccarthy CYSTOCELE REPAIR 05/02/2010 - 05/01/2011 cystocele/retrocele repair RECTOCELE REPAIR 05/02/2010 - 05/01/2011 with this cystocele repair COLONOSCOPY 08/24/2011 colonoscopy (+) tubular adenoma Dr. Villavicencio COLONOSCOPY 05/12/2017 (-) diverticulosis only Dr. Hall COLONOSCOPY 03/26/2008 Colonoscopy (-) Dr. Villavicencio hyperplastic polyps COCCYGECTOMY 09/08/[address] Borrero SKIN CANCER EXCISION 08/31/2019 - 09/30/2019 COSMETIC SURGERY 10/31/2019 - 11/30/2019 skin cancer excision repair UPPER ENDOSCOPIC ULTRASOUND W/ FNA 06/15/2023 DR.Judy Susana Ambrose: fatty infiltration of the liver and pancreas COLONOSCOPY 06/24/2023 Dr. Diaz: (+) single polyp pathology pending Medical History Medical History Date Comments Hx Other Medical auto immune hep atitis Depression Anxiety Obesity Elevated cholesterol DJD (degenerative joint disease) Glaucoma HAYDEE (obstructive sleep apnea) Anxiety and depression 09/15/2013 Depressio n with anxiety Colon polyp has had in the p ast Autoimmune hepatitis (CMS/HCC) (HCC) Cataract bilateral 2 para 2 Diverticulosis Chronic obstructive pulmonary disease (HCC) Acute pancreatitis 05/31/2023 Family History Medical History Relation Name Comments Breast cancer Daughter Colon cancer Maternal Grandmother Cancer Other Relation Name Status Comments Daughter Maternal Grandmother Other Social History Tobacco Use Types Packs/Day Years Used Date Smoking Tobacco: Former Smokeless Tobacco: Never Tobacco Cessation:Counseling Given: Not Answered Comments:Quit 2001 - 2003 Alcohol Use Standard [...] on file Legal Sex Female 8:21 AM MATERIAL EXPEDITOR Gender Identity Not on file Sexual Orientation Not on file 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 Not on file Not on file Not on fi le Obstetrics History Para Term AB IAB SAB Ectopic Multiple Livin g Live Births 2 2 2 Date Outcome GA Total Labor Labor/2nd/3rd Weight Sex Type Anes PTL Erica A1 A5 Name Clin Term Term Last Filed Vital Signs Vital Sign Reading Time Taken Comments Blood Pressure 104/64 06/05/2024 9:30 AM MATERIAL EXPEDITOR Pulse 69 06/05/2024 9:30 AM MATERIAL EXPEDITOR Temperature 36.3 C (97.3 F) 06/05/2024 9:30 AM MATERIAL EXPEDITOR Respiratory Rate 18 06/05/2024 9:30 AM MATERIAL EXPEDITOR Oxygen Saturation 98% 06/05/2024 9:30 AM MATERIAL EXPEDITOR Inhaled Oxygen Concentration - - Weight 88 kg (194 lb) 06/05/2024 9:30 AM MATERIAL EXPEDITOR Height 162.6 cm (5' 4 ) 06/05/2024 9:30 AM MATERIAL EXPEDITOR Body Mass Index 33.3 06/05/2024 9:30 AM MATERIAL EXPEDITOR Plan of Treatment Health Maintenance Due Date Last Done Comments Covid-19 Vaccine (2023-06 5 season) 2024 04/03/2021, 07/22/2020, 06/24/2020 Dilated Eye Exam 06/15/2024 06/15/2023 Hemoglobin A1C 09/25/2024 03/28/2024, 12/31, 06/07/2023, Additional history exists Fall Risk Assessment 01/22/2025 01/23/2024, 06/16/2023, 12/23/2022, Additional history exists Foot Exam 01/22/2025 01/23/2024 Well Visit 65+ 01/22/2025 01/23/2024, 12/01, 12/14/2021, Additional history exists Albumin Creatinine Ratio, Urine 03/28/2025 03/28/2024, 01/16/2024, 06/09/2023, Additional history exists Lipid Panel 03/28/2025 03/28/2024, 1106/2022, 12/15/2022, Additional history exists eGFR 03/28/2025 03/28/2024, 12/31, 06/07/2023, Additional history exists Depression Screening 05/15/2025 05/15/2024, 04/11/2024, 01/23/2024, Additional history exists Osteoporosis Screening-Bone Density Scan 02/27/2026 02/28/2024 DTaP/Tdap/Td Vaccine (3 - Td or Tdap) 06/10/2031 06/10/2021, 05/24/2011 Hepatitis B Screening Completed 06/18/2011 Hepatitis C Screening Completed 06/18/2011 Zoster Vaccine Completed 08/25/2018, 04/01, 07/26/2008 Colon Cancer Screening-CT Colonography Discontinued 06/24/2023, 05/12/2017, 07/17/2015, Additional history exists Colon Cancer Screening-Colonoscopy Discontinued 06/24/2023, 05/12/2017, 07/17/2015, Additional history exists Colon Cancer Screening-DNA Stool Discontinued 06/24/2023, 05/12/2017, 07/17/2015, Additional history exists Colon Cancer Screening-FIT Discontinued 06/24, 05/12/2017, 07/17/2015, Additional history exists Colon Cancer Screening-FOBT Discontinued 06/03, 05/12/2017, 07/17/2015, Additional history exists Colon Cancer Screening-Sigmoidoscopy Discontinued 06/24/2023, 05/12/2017, 07/17/2015, Additional history exists Colorectal Cancer Screening Discontinued Pneumococcal vaccine 65+ Completed 024, 09/06/2016, 05/29/2014, Additional history exists Breast Cancer Screening-Mammogram Discontinued 02/28/2024, 01/06/2023, 05/14/2013, Additional history exists Influenza Vaccine Completed 04/11/2024, , 01/26/2022, Additional history exists Procedures Procedure Name Priority Date/Time Associated Diagnosis Comments EGFR Routine 03/28/2024 9:46 AM MATERIAL EXPEDITOR Type 2 diabetes mellitus without complication, without long-term current use of insulin (CMS/HCC) (HCC) Class 2 severe obesity with serious comorbidity and body mass index (BMI) of 36.0 to 36.9 in adult, unspecified obesity type (HCC) T4, FREE Routine 03/28/2024 9:46 AM MATERIAL EXPEDITOR Type 2 diabetes mellitus without complication, without long-term current use of insulin (CMS/HCC) (HCC) Lymphedema TSH Routine 03/28/2024 9:46 AM MATERIAL EXPEDITOR Type 2 diabetes mellitus without complication, without long-term current use of insulin (CMS/HCC) (HCC) Lymphedema PRO B-TYPE NATRIURETIC PEPTIDE Routine 03/28/2024 9:46 AM MATERIAL EXPEDITOR Type 2 diabetes mellitus without complication, without long-term current use of insulin (CMS/HCC) (HCC) Cervical stenosis of spinal canal COMPREHENSIVE METABOLIC PANEL Routine 03/28/2024 9:46 AM MATERIAL EXPEDITOR Type 2 diabetes mellitus without complication, without long-term current use of insulin (CMS/HCC) (HCC) Class 2 severe obesity with serious comorbidity and body mass index (BMI) of 36.0 to 36.9 in adult, unspecified obesity type (HCC) HEMOGLOBIN A1C Routine 03/28/2024 9:46 AM MATERIAL EXPEDITOR Type 2 diabetes mellitus without complication, without long-term current use of insulin (CMS/HCC) (HCC) Class 2 severe obesity with serious comorbidity and body mass index (BMI) of 36.0 to 36.9 in adult, unspecified obesity type (HCC) ALBUMIN CREATININE RATIO, URINE Routine 03/28/2024 9:46 AM MATERIAL EXPEDITOR Type 2 diabetes mellitus without complication, without long-term current use of insulin (CMS/HCC) (HCC) Class 2 severe obesity with serious comorbidity and body mass index (BMI) of 36.0 to 36.9 in adult, unspecified obesity type (HCC) CHOLESTEROL, LDL, DIRECT Routine 03/28/2024 9:46 AM MATERIAL EXPEDITOR Type 2 diabetes mellitus without complication, without long-term current use of insulin (CMS/HCC) (HCC) Class 2 severe obesity with serious comorbidity and body mass index (BMI) of 36.0 to 36.9 in adult, unspecified obesity type (HCC) LIPID PANEL Routine 03/28/2024 9:46 AM MATERIAL EXPEDITOR Type 2 diabetes mellitus without complication, without long-term current use of insulin (CMS/HCC) (HCC) Class 2 severe obesity with serious comorbidity and body mass index (BMI) of 36.0 to 36.9 in adult, unspecified obesity type (HCC) DEXA AXIAL SKELETON BONE DENSITY 1 OR MORE SITES Schedule Routine, Read Routine (OP Routine) 02/28/2024 9:31 AM CDT Menopause SCREENING MAMMOGRAM BILATERAL W SARWAT Schedule Routine, Read Routine (OP Routine) 02/28/2024 8:33 AM CDT Encounter for screening mammogram for breast cancer COLONOSCOPY 06/24/2023 8:40 AM MATERIAL EXPEDITOR from Last 3 Months or Most Recently Relevant to Health Maintenance Results * eGFR (03/28/2024 9:46 AM MATERIAL EXPEDITOR) eGFR 62 >=60 mL/min/1. 73 m2 Comment: Interpretive Data Reference Interval Normal >/= 90 mL/min/1.73m2 Mildly decreased* 60 - 89 mL/min/1.73m2 Mildly to moderately decreased 45 - 59 mL/min/1.73m2 Moderately to severely decreased 30 - 44 mL/min/1.73m2 Severely decreased 15 - 29 mL/min/1.73m2 Kidney Failure < 15 mL/min/1.73m2 *Relative to young adult level Estimated glomerular filtration rate is determined by the 2020 CKD-EPI equation recommended by the National Kidney Foundation (A Unifying Approach to GFR Estimation: Recommendations of the NKF-ASK Task Force on Reassessing the Inclusion of Race in Diagnosing Kidney Disease, JASN 2020). The CKD-EPI equation should not be used for patients with unstable renal function and has not been validated in children and those over 70. Current interpretive data was last reviewed 2021. Testing performed by: [facility], [address] [place] [address], [place]., [address] Blood 03/28/2024 9:46 AM MATERIAL EXPEDITOR 03/28/2024 1:04 PM MATERIAL EXPEDITOR Darling Barillas MD LAB BLOOD ORDERABLES Final Result [facility] [id number] [facility] Department [place] [address] * Pro B-type natriuretic peptide (03/28/2024 9:46 AM MATERIAL EXPEDITOR) NT-proBNP 227 <=450 pg/mL Comment: Interpretive Comments: A. Dyspnea in Acute Care Setting All Ages: < 300 pg/ml, acute heart failure unlikely. < 50 yrs: 300 - 450 pg/ml, further investigation warranted. > 450 pg/ml, acute heart failure likely. 50 - 74 yrs: 300 - 900 pg/ml, further investigation warranted. > 900 pg/ml, acute heart failure likely . > or = 75 yrs: 450 - 1800 pg/ml, further investigation warranted. > 1800 pg/ml, acute heart failure likely. B. Non-acute Setting < 75 yrs < 125 pg/ml, rules out heart failure. > or = 125 pg/ml, further investigation warranted. > or = 75 yrs < 450 pg/ml, rules out heart failure. > or = 450 pg/ml, further investigation warranted. - Knowledge of each individual patient's NT-proBNP range may be more useful than using similar cut-points for every patient. Please note that marked elevations in NT-proBNP levels may be observed in state other than Left Ventricular Congestive Failure, including: acute coronary syndromes, right heart strain/failure (including pulmonary embolism and cor pulmonale), critical illness, renal failure, as well as advanced age. - References: 1. Lissette PEREZ et.al. Eur Heart J. 2006:27:330-337. 2. Hemal RW, Bumlaro BURDICK. J. AM Amanda Cardiol: Cardiovasc Imag. 2009;2: 216- 225. Interpretive Data Last Revised Date: 2017. Testing performed by: [facility], [address] [place] [address]., [address] Blood 03/28/2024 9:46 AM MATERIAL EXPEDITOR 03/28/2024 12:26 PM MATERIAL EXPEDITOR Darling Barillas MD LAB BLOOD ORDERABLES Final Result Performing Organization Address [facility] Co de Phone Number [facility] [address] [facility] [place] [address] * Albumin Creatinine Ratio, Urine (03/28/2024 9:46 AM MATERIAL EXPEDITOR) Albumin Ur <12.0 mg/L Comment: Interpretive Data No reference range established. Current interpretive data was last revised 2018. Testing performed by: [facility], [address] [place] [address]., [address] Creatinine Ur 125.7 mg/dL [facility] Comment: Interpretive Data No reference range established. Current interpretive data was last revised 2018. Testing performed by: [address] [address] Albumin Creatinine Ratio, Ur <10 1 - 29 mg/g [facility] Comment:Testing performed by : [address] [address] Urine 03/28/2024 9:46 AM MATERIAL EXPEDITOR 03/28/2024 12:26 PM MATERIAL EXPEDITOR us Darling Barillas MD LAB URINE ORDERABLES Final Result Performing Organization Address [facility] de Phone Number [facility] [address] [facility] [place] [address] * TSH (03/28/2024 9:46 AM MATERIAL EXPEDITOR) Thyroid Stimulating Hormone 2.35 0.30 - 4.20 mcIUnit/mL Comment:Testing performed by : [address] [address] Blood 03/28/2024 9:46 AM MATERIAL EXPEDITOR 03/28/2024 12:26 PM MATERIAL EXPEDITOR us Darling Barillas MD LAB BLOOD ORDERABLES Final Result Performing Organization Address [facility] Co de Phone Number [facility] [address] [facility] [place] [address] * T4, free (03/28/2024 9:46 AM MATERIAL EXPEDITOR) Pathologist [facility] Free T4 1.25 0.90 - 1.70 ng/dL Comment:Testing performed by : [address] [address] Blood 03/28/2024 9:46 AM MATERIAL EXPEDITOR 03/28/2024 12:26 PM MATERIAL EXPEDITOR us Darling Barillas MD LAB BLOOD ORDERABLES Final Result Performing Organization Address [facility] Co de Phone Number [facility] [address] [place] [address] * Cholesterol, LDL, direct (03/28/2024 9:46 AM MATERIAL EXPEDITOR) [facility] LDL Cholesterol, Direct 61 <=129 mg/dL Comment: Interpretive Data Ages < or = 19 years Acceptable: <110 mg/dL Borderline high: 110-129 mg/dL High: >or= 130 mg/dL Ages > or = 20 years Optimal: <100 mg/dL Near optimal: 100-129 mg/dL Borderline high: 130-159 mg/dL High: >160 mg/dL Literature References: 1. Expert Panel on Integrated Guidelines for Cardiovascular Health and Risk Reduction in Children and Adolescents. Pediatrics 2011;128:S213 2. NCEP Expert Panel. Circulation 2004;110:227 Current Interpretive Data was last revised on 2017. Testing performed by: [address] [address] Blood 03/28/2024 9:46 AM MATERIAL EXPEDITOR 03/28/2024 12:26 PM MATERIAL EXPEDITOR us Darling Barillas MD LAB BLOOD ORDERABLES Final Result Performing Organization Address [facility] Co de Phone Number [facility] [address] [place] [address] * (ABNORMAL) Hemoglobin A1c (03/28/2024 9:46 AM MATERIAL EXPEDITOR) [facility] Hgb A1C 5.8(H) 4.0 - 5.6 % Comment:Testing performed by : [address] [address] Estimated Average Glucose 120 mg/dL [facility] Comment: The ADA recommends reporting an estimated Average Glucose (eAG) with all Hemoglobin A1c results using the equation derived from a study of 507 normal and diabetic adults. Minority populations were underrepresented and children were not included. (Diabetes Care 31:5941-4024, 2008). The eAG is not equivalent to a fasting glucose. Testing performed by: [address] [address] Blood 03/28/2024 9:46 AM MATERIAL EXPEDITOR 03/28/2024 12:26 PM MATERIAL EXPEDITOR Darling Barillas MD LAB BLOOD ORDERABLES Final Result [facility] [address] Department of Laboratories [place], [place] [id number] * Lipid panel (03/28/2024 9:46 AM MATERIAL EXPEDITOR) Cholesterol 126 30 - 199 mg/dL Comment: Interpretive Data Ages < or = 19 years Acceptable: <170 mg/dL Borderline high: 170-199 mg/dL High: >or= 200 mg/dL Ages > or = 20 years Desirable: <200 mg/dL Borderline high: 200-239 mg/dL High: >or= 240 mg/dL Literature References: 1. Expert Panel on Integrated Guidelines for Cardiovascular Health and Risk Reduction in Children and Adolescents. Pediatrics 2011;128:S213 2. NCEP Expert Panel. Circulation 2004;110:227 Current Interpretive Data was last revised on 2017. Testing performed by: [address] [place] [address] Triglycerides 94 <=149 mg/dL [facility] Comment: Interpretive Data Ages < or = 9 years Acceptable: <75 mg/dL Borderline high: 75-99 mg/dL High: >or= 100 mg/dL Ages 10 to 20 years Acceptable: <90 mg/dL Borderline high: 90-129 mg/dL High: >or= 130 mg/dL Ages > or = 20 years Desirable: <150 mg/dL Borderline high: 150-199 mg/dL High: 200-499 mg/dL Very high: >or= 499 mg/dL Literature References: 1. Expert Panel on Integrated Guidelines for Cardiovascular Health and Risk Reduction in Children and Adolescents. Pediatrics 2011;128:S213 2. NCEP Expert Panel. Circulation 2004;110:227 Current Interpretive Data was last revised on 2017. Testing performed by: [facility], [address] [place] [address]., [address] HDL 46 >=40 mg/dL [facility] Comment: Interpretive Data Ages < or = 19 years Acceptable: >45 mg/dL Borderline low: 40-45 mg/dL Low: <40 mg/dL Ages > or = 20 years Desirable: >or= 60 mg/dL Low: <40 mg/dL Literature References: 1. Expert Panel on Integrated Guidelines for Cardiovascular Health and Risk Reduction in Children and Adolescents. Pediatrics 2011;128:S213 2. NCEP Expert Panel. Circulation 2004;110:227 Current Interpretive Data was last revised on 2017. Testing performed by: [address] [address] LDL, calculated 62 <=129 mg/dL [facility] Comment: Interpretive Data Ages < or = 19 years Acceptable: <110 mg/dL Borderline high: 110-129 mg/dL High: >or= 130 mg/dL Ages > or = 20 years Optimal: <100 mg/dL Near optimal: 100-129 mg/dL Borderline high: 130-159 mg/dL High: >160 mg/dL Calculated using the Michael LDL-C estimating equation. This equation was implemented on 2023. Prior to this date LDL-C was estimated using the Friedewald equation. Literature References: 1. Expert Panel on Integrated Guidelines for Cardiovascular Health and Risk Reduction in Children and Adolescents. Pediatrics 2011;128:S213 2. NCEP Expert Panel. Circulation 2004;110:227 3. Michael Mcneill et al. MIKEY Cardiol. 2020 August 30;5(5):540-548. doi: 10.1001/jamacardio.2020.0013 Current Interpretive Data was last revised on 2023. Testing performed by: [address] [address] Non-HDL Cholesterol 80 mg/dL [facility] Comment: Interpretive Data Ages < or = 19 years Acceptable: <120 mg/dL Borderline high: 120-144 mg/dL High: >145 mg/dL Ages > or = 20 years When triglycerides are >200 mg/dL, Non-HDL cholesterol is a secondary target of therapy with treatment goals that are 30 mg/dL greater than the LDL cholesterol target. Literature References: 1. Expert Panel on Integrated Guidelines for Cardiovascular Health and Risk Reduction in Children and Adolescents. Pediatrics 2011;128:S213 2. NCEP Expert Panel. Circulation 2004;110:227 Current Interpretive Data was last revised on 2017. Testing performed by: [address] [address] Chol/HDL ratio 3 [facility] Comment:Testing performed by : [address] [address] Blood 03/28/2024 9:46 AM MATERIAL EXPEDITOR 03/28/2024 12:26 PM MATERIAL EXPEDITOR Darling Barillas MD LAB BLOOD ORDERABLES Final Result [address] Department [place] [address] * Comprehensive metabolic panel (03/28/2024 9:46 AM MATERIAL EXPEDITOR) Sodium 138 135 - 145 mmol/L Comment:Testing performed by : [address] [address] Potassium, pl 4.6 3.3 - 4.9 mmol/L [facility] Comment:Testing performed by : [address] [address] Chloride 101 97 - 110 mmol/L [facility] Comment:Testing performed by : [address] [address] CO2 27 22 - 32 mmol/L [facility] Comment:Testing performed by : [address] [address] Anion gap 10 2 - 15 mmol/L [facility] Comment:Testing performed by : [address], [address] BUN 13 6 - 25 mg/dL [facility] Comment:Testing performed by : [address] [address] Creatinine 0.94 0.60 - 1.10 mg/dL [facility] Comment:Testing performed by : [address] [address] Glucose 107 70 - 199 mg/dL [facility] Comment: Interpretive Data Fasting glucose >/= 126 mg/dl is diagnostic for diabetes. Fasting is defined as no caloric intake for at least 8 hours. Fasting glucose between 100 mg/dl to 125 mg/dl is diagnostic of prediabetes. In a patient with classic symptoms of hyperglycemia or hyperglycemic crisis, a random glucose >/= 200 mg/dl is diagnostic for diabetes. In the absence of unequivocal hyperglycemia, results should be confirmed by repeat testing. The classification and Diagnosis of Diabetes Diabetes Care 2021; 46: S19-S40. Current interpretive data was last revised 2022. Testing performed by: [address] [address] Calcium 9.3 8.5 - 10.3 mg/dL [facility] Comment:Testing performed by : [address] [address] Bilirubin, total 0.7 0.1 - 1.2 mg/dL [facility] Comment:Testing performed by : [address] [address] Protein, pl 7.2 6.5 - 8.5 g/dL [facility] Comment:Testing performed by : [address] [address] Albumin 3.7 3.5 - 5.0 g/dL [facility] Comment:Testing performed by : [address] [address] Alk phos 68 40 - 130 Units/L [facility] Comment:Testing performed by : [address], [address] ALT 20 7 - 45 Units/L [facility] Comment:Testing performed by : [address], [address] AST 23 10 - 45 Units/L [facility] Comment:Testing performed by : [address], [address] Blood 03/28/2024 9:46 AM MATERIAL EXPEDITOR 03/28/2024 12:26 PM MATERIAL EXPEDITOR us Darling Barillas MD LAB BLOOD ORDERABLES Final Result [facility] [address] [address] Department [place] [address] * Dexa Axial Skeleton Bone Density 1 or 2 Site (02/28/2024 9:31 AM CDT) Anatomical Region Laterality Modality Body N/A Other 02/28/2024 6:06 PM CDT Narrative 02/28/2024 6:09 PM CDT EXAM DESCRIPTION: DEXA AXIAL SKELETON BONE DENSITY 1 OR MORE SITES REASON FOR STUDY: 79 y/o year old F with given history of: menopause 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 IMPRESSION: Normal bone mass. REFERENCE: Bone mineral density: T-Score: Normal (T-score above or = -1.0) Low bone mass (T-score between -1.0 and -2.5) replaces the previously used term osteopenia Osteoporosis (T-score = or below -2.5) Z-Score: Within the expected range for age (Z-score above -2.0) Below the expected range for age (Z-score is -2.0 or below) Please see below follow up recommendations. Medical evaluation for secondary causes of low bone mineral density may be appropriate. FRAX is a World Health Organization validated fracture risk assessment tool that calculates a person's 10 year probability of a major osteoporosis related fracture and hip fracture. According to the National Osteoporosis Foundation guidelines, postmenopausal women and men age 50 or older with low bone mass and a 10 year probability of a major osteoporosis related fracture = or greater than 20% or a 10 year probability of a hip fracture = or greater than 3% should be considered for pharmacological treatment for the prevention of osteoporosis. For further information, including treatment recommendations, please refer to the 2019 ISCD Official Positions (http://www.iscd.org) and the NOF's Clinician's Guide to Prevention and Treatment of Osteoporosis (http://www.nof.org/professionals/clinical-guidelines) THIS IS AN ELECTRONICALLY VERIFIED FINAL REPORT 02/28/2024 6:09 PM - Electronically signed by Star Santana M.D. 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 IMPRESSION: Normal bone mass. REFERENCE: Bone mineral density: T-Score: Normal (T-score above or = -1.0) Low bone mass (T-score between -1.0 and -2.5) replaces thepreviously used term osteopenia Osteoporosis (T-score = or below -2.5) Z-Score: Within the expected range for age (Z-score above -2.0) Below the expected range for age (Z-score is -2.0 or below) Please see below follow up recommendations. Medical evaluation forsecondary causes of low bone mineral density may be appropriate. FRAX is a World Health Organization validated fracture risk assessmenttool that calculates a person's 10 year probability of a major osteoporosisrelated fracture and hip fracture. According to the National OsteoporosisFoundation guidelines, postmenopausal women and men age 50 or older with low bonemass and a 10 year probability of a major osteoporosis related fracture = or greater than 20% or a 10 year probability of a hip fracture = or greaterthan 3% should be considered for pharmacological treatment for the preventionof osteoporosis. For further information, including treatment recommendations, please referto the 2019 ISCD Official Positions (http://www.iscd.org) and the NOF's Clinician's Guide to Prevention and Treatment of Osteoporosis (http://www.nof.org/professionals/clinical-guidelines) THIS IS AN ELECTRONICALLY VERIFIED FINAL REPORT 02/28/2024 6:09 PM - Electronically signed by Star Santana M.D. MF: MARTHA Report ID: [id number] Reading Location: [place] [address] Darling Barillas MD IM DXA PROCEDURES Final R esult * Screening Mammogram Bilateral [place] (02/28/2024 8:33 AM CDT) Anatomical Region Laterality Modality Breast Bilateral Mammography 02/29/2024 8:55 AM CDT Impressions 02/29/2024 8:55 AM CDT There is no mammographic evidence of malignancy. A 1 year screening mammogram is recommended. BI-RADS: 1 - Negative. The patient has been or will be contacted. The patient will be entered into a reminder system with a target due date of 1 year for her next mammogram. Electronically signed by: Lady Koehler M.D. Narrative 02/29/2024 8:55 AM CDT EXAMINATION: SCREENING MAMMOGRAM BILATERAL W SARWAT ORDERING HEALTHCARE PROVIDER: DARLING BARILLAS HISTORY: Routine screening mammography. COMPARISON: 01/06/2023, 10/19/2018 TECHNIQUE: CC and MLO views of the bilateral breasts were obtained with digital technique using breast tomosynthesis with C view. Computer aided detection was utilized. FINDINGS: DENSITY: The breasts are almost entirely fatty. BREASTS: There are no suspicious masses, suspicious calcifications, or other suspicious findings in either breast. There has been no suspicious interval change. us Darling Barillas MD IMG MAMMO PROCEDURES Final Result * Colonoscopy (06/24/2023 8:40 AM MATERIAL EXPEDITOR) Anatomical Region Laterality Modality Other Narrative Procedure Note Gianni Diaz MD - 06/24/2023 8:40 AM CST [facility] Patient Name: Estrella Bhagat Procedure Date: 06/24/2023 8:40 AM Date of : 1945 Admit Type: Outpatient Age: 78 Gender: Female Attending MD: Gianni Diaz M.D. Room: [facility] ENDOSCOPY ROOM 3 Note Status: Finalized Patient Profile: This is a 78 year old female hx of COPD, HAYDEE, DM, obesity, CAD here for colon polyp surveillance.Last colonoscopy 2017 showed no polyps. Grandparent with colon cancer. Procedure: Colonoscopy Indications: High risk colon cancer surveillance: Personalhistory of colonic polyps, Last colonoscopy: May 2017 Referring MD: Darling Barillas M.D. Providers: Gianni Diaz M.D. Impression: - Preparation of the colon was fair. - Tortuous colon. - One 5 mm polyp in the descending colon, removedwith a cold snare. Resected and retrieved. - Diverticulosis in the sigmoid colon. - Internal hemorrhoids. Recommendation: - Discharge patient to home (with escort). - Patient has a contact number available for emergencies. The signs and symptoms of potential delayed complications were discussed with thepatient. Return to normal activities tomorrow. Written discharge instructions were provided to thepatient. - Resume previous diet. - Continue present medications. - Await pathology results. - Repeat colonoscopy in 3 years with 2 day prep for surveillance based on pathology results. - Return to primary care physician as previously scheduled. Medicines: Propofol per Anesthesia Complications: No immediate complications. Estimated Blood Loss: Estimated blood loss was minimal. Procedure: Pre-Anesthesia Assessment: - Prior to the procedure, a History and Physicalwas performed, and patient medications and allergieswere reviewed. The patient is competent. The risks and benefits of the procedure and the sedation optionsand risks were discussed with the patient. Allquestions were answered and informed consent was obtained. Patient identification and proposed procedure were verified by the physician, the popcorn candy maker and the chemical lab technician in the endoscopy suite. Mental Status Examination: normal. Prophylactic Antibiotics: The patient does not require prophylactic antibiotics. Prior Anticoagulants: The patient has taken no anticoagulant or antiplatelet agents. Afterreviewing the risks and benefits, the patient was deemed in satisfactory condition to undergo the procedure.The anesthesia plan was to use monitored anesthesiacare (MAC). Immediately prior to administration of medications, the patient was re-assessed foradequacy to receive sedatives. The heart rate, respiratory rate, oxygen saturations, blood pressure, adequacyof pulmonary ventilation, and response to care were monitored throughout the procedure. The physical status of the patient was re-assessed after the procedure. The benefits, risks and alternatives of theprocedure and sedation were discussed and informed consentwas obtained. All questions were answered. Please referto the signed informed consent document in the medical record. The bowel preparation used was Miralax and bisacodyl tablets via split dose instruction. The scope was passed under direct vision. TheColonoscope [id number] was introduced through the anus and advanced to the the cecum, identified by appendiceal orifice and ileocecal valve. The scopewas passed under direct vision. The PediatricColonoscope [id number] was introduced through the and advanced to the. The colonoscopy was somewhat difficult due to multiple diverticula in the colon. The patient tolerated the procedure well. Thequality of the bowel preparation was fair. Bowel prep was administered using a split dose. Findings: The perianal and digital rectal examinations were normal. The sigmoid colon was tortuous and angulated due to multiple diverticula. Advancing the scope required switching to pediatric colonoscope and changing the patient to a supine position. A 5 mm polyp was found in the descending colon. The polyp was flat.The polyp was removed with a cold snare. Resection and retrieval were complete. Scattered small and large-mouthed diverticula were found in thesigmoid colon. Internal hemorrhoids were found during retroflexion. Gianni Diaz M.D. 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 All rights reserved. The codes documented in this report are preliminary and upon health information coder reviewmay be revised to meet current compliance requirements. 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 Expl anation ADVANCE DIRECTIVE 09/26/2018 3:05 PM DNR ADVANCE DIRECTIVE 03/02/2005 P[employer] * Full Code (Latest Code Status on File) Date Activated Date Inactivated Comments 06/24/2023 8:11 AM 06/24/2023 3:55 PM * Full Code Date Activated Date Inactivated Comments 06/24/2023 8:11 AM 06/24/2023 8:11 AM * Full Code Date Activated Date Inactivated Comments 06/16/2023 7:40 AM 06/16/2023 12:52 PM * Full Code Date Activated Date Inactivated Comments 03/01/2023 8:36 PM 03/06/2023 4:41 PM Care Teams Drop Pit Worker Relationship Specialty Start Date End Date Darling Barillas MD PCP - General 07/30/16 Mary Anne Armando OD Air Conditioning Sheet Metal Installer 03/09/17 Francis Zapata MD Consulting Physician Pulmonary Disease 03/09/17 Gianni Diaz MD [address] [place] [address] DR NELSON [address] [place] [id number] Consulting Physician Gastroenterology 03/14/23 Vicki Roe MD [address] [place] [address] Referring Physician Dermatology 06/14/23
--- OUTSIDE RECORDS SUMMARY | 2024-06-08 10:43 | XMS_ITS | Referral Summary ---
Author Organization [facility] Address [address] [place] [address] Care Team Providers Care Plasterer Maintenance Name Role Phone Darling Barillas MD Primary Care Provider + [phone] Mary Anne Armando OD Unavailable [phone] Francis Zapata MD Unavailable [phone] Gianni Diaz MD Unavailable Vicki Roe MD Unavailable [phone] Encounters Date Type Department Care Team Description 06/07/2024 Telephone [facility] [address] [place] [phone] Dalring Barillas MD Diarrhea 06/05/2024 9:30 AM BURRER MACHINE Office Visit [facility] [address] [place] [address] Marlene Kelley NP Type 2 diabetes mellitus without complication, without long-term current use of insulin (CMS/HCC) (HCC) (Primary Dx); Class 1 obesity due to excess calories with serious comorbidity and body mass index (BMI) of 33.0 to 33.9 in adult 05/15/2024 9:30 AM BURRER MACHINE Office Visit [facility] [address] [place] [phone] Marlene Kelley NP Type 2 diabetes mellitus without complication, without long-term current use of insulin (CMS/HCC) ([facility]) (Primary Dx); Class 1 obesity due to excess calories with serious comorbidity and body mass index (BMI) of 34.0 to 34.9 in adult 04/11/2024 8:30 AM BURRER MACHINE Office Visit [facility] [address] [place] [address] Marlene Kleley NP Type 2 diabetes mellitus without complication, without long-term current use of insulin (CMS/HCC) ([facility]) (Primary Dx); Class 1 obesity due to excess calories with serious comorbidity and body mass index (BMI) of 33.0 to 33.9 in adult 03/28/2024 9:50 AM BURRER MACHINE [facility] [address] [place] [phone] Type 2 diabetes mellitus without complication, without long-term current use of insulin (CMS/HCC) ([facility]); Class 2 severe obesity with serious comorbidity and body mass index (BMI) of 36.0 to 36.9 in adult, unspecified obesity type ([facility]); Cervical stenosis of spinal canal; Lymphedema 03/21/2024 Telephone [facility] [address] [place] [address] Darling Barillas MD Diarrhea from Last 3 Months Allergies Active Allergy Reactions Criticality Noted Date Comments Nickel Itching Low 05/29/2010 Medications dorzolamide-timol ol (COSOPT) 22.3-6.8 mg/mL ophthalmic solution Administer 1 drop into both eyes 2 (two) times a day Keshia Kalia Active meclizine (ANTIVERT) 12.5 mg tabletIndications :Left otitis media, unspecified otitis media type,Vertigo Take 1 tablet (12.5 mg total) by mouth 3 (three) times a day as needed for dizziness 90 tablet 022 Active blood-glucose meter mis Use once daily monitoring of diabetes. E11.9 [...] complication, without long-term current use of insulin ([facility]) ([facility]) 1 each by other route as directed To monitor glucose levels once daily E11.9 dispense brand covered by insurance 100 each 3 024 Active metFORMIN XR (GLUCOPHAGE XR) 500 mg 24 hr tabletIndications :Type 2 diabetes mellitus without complication, without long-term current use of insulin ([facility]) ([facility]) Take 1 tablet (500 mg total) by mouth daily with dinner 90 tablet 2 024 2024 Active lancets 31 gauge miscIndications:T ype 2 diabetes mellitus without complication, without long-term current use of insulin ([facility]) ([facility]) 1 each 3 (three) times a week Once dailyTo monitor glucose levels E11.9 dispense brand covered by insurance 100 each 1 024 Active buPROPion XL (WELLBUTRIN XL) 300 mg 24 hr tabletIndications :Mood disorder ([facility]) Take 1 tablet (300 mg total) by mouth every morning 90 tablet 2 024 Active Additional Information Patient not taking.Reported on 06/05/2024 rosuvastatin (CRESTOR) 10 mg tabletIndications :Type 2 diabetes mellitus without complication, without long-term current use of insulin ([facility]) ([facility]),Multiple-ty pe hyperlipidemia Take 1 tablet (10 mg total) by mouth daily 90 tablet 1 024 Active tirzepatide (Mounjaro) 10 mg/0.5 mL pen injector injection Inject 0.5 mL (10 mg total) under the skin once a week 2 mL 1 025 Active tirzepatide (Mounjaro) 7.5 mg/0.5 mL pen injectorIndicatio ns:Type 2 diabetes mellitus without complication, without long-term current use of insulin ([facility]) ([facility]),Class 1 obesity due to excess calories with [...] 03/06/2024 Assessment & Plan (05/20/2024 1:36 PM BURRER MACHINE): Chronic, improving. Up 2 lb in the last months on Mounjaro. BMI currently at 34.1. CMP LDL and A1c from March unremarkable. No acute findings on exam. Increase Mounjaro 10 mg dose. Continue heart healthy diet and exercise as discussed. Follow in 1 month Assessment & Plan (04/11/2024 8:56 AM BURRER MACHINE): Chronic, improving. She is down 9 lb in the last months after starting Mounjaro. BMI currently at 33.8. CMP LDL and A1c from last month unremarkable. No acute findings on exam. Increase Mounjaro 7.5 mg dose. Continue heart healthy diet and exercise as discussed. Follow in 1 month Assessment & Plan (03/06/2024 8:51 AM BURRER MACHINE): Chronic, improving. She is down 9 lb [...] complication, without long-term current use of insulin ([facility]) 12/25/2020 Assessment & Plan (05/20/2024 1:35 PM BURRER MACHINE): Chronic, controlled. Last A1c from March was down 5.8. Up 2 lbs in last month. BMI at 34.1- blames holidays. Mild indigestion controlled with lbif-crn-rcbkgwd medicines. No acute findings on exam, vitals stable. We will increase Mounjaro 10 mg dose. Continue metformin as prescribed. Follow in 1 month. Assessment & Plan (04/11/2024 8:55 AM BURRER MACHINE): Chronic, controlled. Last A1c from March was down 5.8. She is down 9 lbs in last month. BMI at 33.8. Mild indigestion controlled with tudg-obr-aqijojx medicines. Diarrhea for the last 2-3 days-unsure if related to mounjaro or not. No acute findings on exam, vitals stable. We will increase Mounjaro 7.5 mg dose. Continue metformin as prescribed. Follow in 1 month. Assessment & Plan (03/06/2024 8:50 AM BURRER MACHINE): Chronic, controlled. Last A1c from December was 6.1. She is down 9 lb since starting the Mounjaro last month. BMI at 35.4. Mild indigestion controlled with ytmx-qzd-zonmrxf medicines. No acute findings on exam, vitals [...] Manage bY Karlene at Dr. Zapata's office [facility] with visits twice yearly as of the [...] 023 Assessment & Plan (06/24/2022 8:46 AM BURRER MACHINE): Symptoms for 3 days. Tested negative for [...] help. She is currently doing PT at [facility] and will do that for [...] She will also go for PT in [place]. This could be arthritis, sciatic pain, muscle [...] well. She will go to PT in [place] for this. Not sure if the pain [...] fever. 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 No mass [...] Depression with anxiety Shortness of breath 05/27/19 21 Overview (05/27/2018): Images from the original note were not included. STRESS TEST (-) May 26, 2018 Conclusions: 1. Adequate stress test in regards to heart rate. 2. No exercise induced chest pain. 3. Maximal exercise ECG that is negative for ischemia. Dr Jaun Estrada 2018-05-26 17:12:17 BURRER MACHINE LABS D-dimer (+), CT pulmonary angiogram (-), [...] function. Electronically Signed By: Naresh Orellana MD, [facility] 2018-04-27 09:38:04 BURRER MACHINE Solitary pulmonary nodule Overview (09/29/2019): Turned into a granulomatous nodules and no further on calcified nodules as of the 2019 CT The lungs are well expanded. There are calcified granulomata in the right upper and middle lobes. No evidence of a noncalcified pulmonary nodule or mass lesion. 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 dee [employer] Not on file Not on file Not on fi le Last Filed Vital Signs Vital Sign Reading Time Taken Comments Blood Pressure 104/64 06/05/2024 9:30 AM BURRER MACHINE Pulse 69 06/05/2024 9:30 AM BURRER MACHINE Temperature 36.3 C (97.3 F) 06/05/2024 9:30 AM BURRER MACHINE Respiratory Rate 18 06/05/2024 9:30 AM BURRER MACHINE Oxygen Saturation 98% 06/05/2024 9:30 AM BURRER MACHINE Inhaled Oxygen Concentration - - Weight 88 kg (194 lb) 06/05/2024 9:30 AM BURRER MACHINE Height 162.6 cm (5' 4 ) 06/05/2024 9:30 AM BURRER MACHINE Body Mass Index 33.3 06/05/2024 9:30 AM BURRER MACHINE Plan of Treatment Not on file Procedures Procedure Name Priority Date/Time Associated Diagnosis Comments EGFR Routine 03/28/2024 9:46 AM BURRER MACHINE Type 2 diabetes mellitus without complication, without long-term current use of insulin ([facility]/HCC) ([facility]) Class 2 severe obesity with serious comorbidity and body mass index (BMI) of 36.0 to 36.9 in adult, unspecified obesity type ([facility]) T4, FREE Routine 03/28/2024 9:46 AM BURRER MACHINE Type 2 diabetes mellitus without complication, without long-term current use of insulin (CMS/HCC) ([facility]) Lymphedema TSH Routine 03/28/2024 9:46 AM BURRER MACHINE Type 2 diabetes mellitus without complication, without long-term current use of insulin (CMS/HCC) ([facility]) Lymphedema PRO B-TYPE NATRIURETIC PEPTIDE Routine 03/28/2024 9:46 AM BURRER MACHINE Type 2 diabetes mellitus without complication, without long-term current use of insulin (CMS/HCC) (HCC) Cervical stenosis of spinal canal COMPREHENSIVE METABOLIC PANEL Routine 03/28/2024 9:46 AM BURRER MACHINE Type 2 diabetes mellitus without complication, without long-term current use of insulin (CMS/HCC) (HCC) Class 2 severe obesity with serious comorbidity and body mass index (BMI) of 36.0 to 36.9 in adult, unspecified obesity type (HCC) HEMOGLOBIN A1C Routine 03/28/2024 9:46 AM BURRER MACHINE Type 2 diabetes mellitus without complication, without long-term current use of insulin (CMS/HCC) (HCC) Class 2 severe obesity with serious comorbidity and body mass index (BMI) of 36.0 to 36.9 in adult, unspecified obesity type (HCC) ALBUMIN CREATININE RATIO, URINE Routine 03/28/2024 9:46 AM BURRER MACHINE Type 2 diabetes mellitus without complication, without long-term current use of insulin (CMS/HCC) (HCC) Class 2 severe obesity with serious comorbidity and body mass index (BMI) of 36.0 to 36.9 in adult, unspecified obesity type (HCC) CHOLESTEROL, LDL, DIRECT Routine 03/28/2024 9:46 AM BURRER MACHINE Type 2 diabetes mellitus without complication, without long-term current use of insulin (CMS/HCC) (HCC) Class 2 severe obesity with serious comorbidity and body mass index (BMI) of 36.0 to 36.9 in adult, unspecified obesity type (HCC) LIPID PANEL Routine 03/28/2024 9:46 AM BURRER MACHINE Type 2 diabetes mellitus without complication, without [...] for breast cancer COLONOSCOPY 06/24/2023 8:40 AM BURRER MACHINE from Last 3 Months or Most Recently Relevant to Health Maintenance Results * eGFR (03/28/2024 9:46 AM BURRER MACHINE) eGFR 62 >=60 mL/min/1. 73 m2 Comment: [...] was last reviewed 2021. Testing performed by: [facility], [address] [place] [address]., [address] Blood 03/28/2024 9:46 AM BURRER MACHINE 03/28/2024 1:04 PM BURRER MACHINE us Darling Barillas MD LAB BLOOD ORDERABLES Final Result [facility] [address] [facility] [place] [address] * Pro B-type natriuretic peptide (03/28/2024 9:46 AM BURRER MACHINE) NT-proBNP 227 <=450 pg/mL Comment: Interpretive Comments: [...] Eur Heart J. 2006:27:330-337. 2. Hemal RW, Bulmaro AM. J. AM Amanda Cardiol: Cardiovasc Imag. 2009;2: 216- 225. Interpretive Data Last Revised Date: 2017. Testing performed by: [facility], [address] [place] [address]., [address] Blood 03/28/2024 9:46 AM BURRER MACHINE 03/28/2024 12:26 PM BURRER MACHINE us Darling Barillas MD LAB BLOOD ORDERABLES Final Result [facility] [address] [facility] [place] [address] * Albumin Creatinine Ratio, Urine (03/28/2024 9:46 AM BURRER MACHINE) Albumin Ur <12.0 mg/L Comment: Interpretive Data No reference range established. Current interpretive data was last revised 2018. Testing performed by: [facility], [address] [place] [address]., [address] Creatinine Ur 125.7 mg/dL [facility] Comment: Interpretive Data No reference range established. Current interpretive data was last revised 2018. Testing performed by: [facility], [address] [place] [address]., [address] Albumin Creatinine Ratio, Ur <10 1 - 29 mg/g [facility] Comment:Testing performed by : [facility], [address] [place] [address]., [address] Urine 03/28/2024 9:46 AM BURRER MACHINE 03/28/2024 12:26 PM BURRER MACHINE Result Vasyl Barillas MD LAB URINE ORDERABLES Final Result Performing Organization Address City/[facility] Co de Phone Number [facility] [address] [address] [place] [address] * TSH (03/28/2024 9:46 AM BURRER MACHINE) Thyroid Stimulating Hormone 2.35 0.30 - 4.20 mcIUnit/mL Comment:Testing performed by : [address] [address] Blood 03/28/2024 9:46 AM BURRER MACHINE 03/28/2024 12:26 PM BURRER MACHINE Result Vasyl Barillas MD LAB BLOOD ORDERABLES Final Result Performing Organization Address [facility]/ZIP Co de Phone Number [facility] [place] [address] * T4, free (03/28/2024 9:46 AM BURRER MACHINE) Free T4 1.25 0.90 - 1.70 ng/dL Comment:Testing performed by : [facility], [address] [place] [address]., [address] Blood 03/28/2024 9:46 AM BURRER MACHINE 03/28/2024 12:26 PM BURRER MACHINE Result Vasyl Barillas MD LAB BLOOD ORDERABLES Final Result Performing Organization Address [facility] Co de Phone Number [facility] [address] [facility] [place] [address] * Cholesterol, LDL, direct (03/28/2024 9:46 AM BURRER MACHINE) LDL Cholesterol, Direct 61 <=129 mg/dL Comment: [...] last revised on 2017. Testing performed by: [address] [address] Blood 03/28/2024 9:46 AM BURRER MACHINE 03/28/2024 12:26 PM BURRER MACHINE us Darling Barillas MD LAB BLOOD ORDERABLES Final Result Performing Organization Address [facility] Co de Phone Number [facility] [address] [address] [place] [address] * (ABNORMAL) Hemoglobin A1c (03/28/2024 9:46 AM BURRER MACHINE) Hgb A1C 5.8(H) 4.0 - 5.6 % Comment:Testing performed by : [address] [address] Estimated Average Glucose 120 mg/dL [facility] Comment: The ADA recommends reporting an estimated Average Glucose (eAG) with all Hemoglobin A1c results using the equation derived from a study of 507 normal and diabetic adults. Minority populations were underrepresented and children were not included. (Diabetes Care 31:7979-6625, 2008). The eAG is not equivalent to a fasting glucose. Testing performed by: [address] [place]., [address] Blood 03/28/2024 9:46 AM BURRER MACHINE 03/28/2024 12:26 PM BURRER MACHINE us Darling Barillas MD LAB BLOOD ORDERABLES Final Result [facility] [address] [facility] [place] [address] * Lipid panel (03/28/2024 9:46 AM BURRER MACHINE) Cholesterol 126 30 - 199 mg/dL Comment: [...] last revised on 2017. Testing performed by: [address] [address] Triglycerides 94 <=149 mg/dL [facility] Comment: Interpretive Data Ages < [...] last revised on 2017. Testing performed by: [address] [address] HDL 46 >=40 mg/dL [facility] Comment: Interpretive Data Ages [...] last revised on 2017. Testing performed by: [facility], [address] [place] [address]., [address] LDL, calculated 62 <=129 mg/dL [facility] Comment: [...] NCEP Expert Panel. Circulation 2004;110:227 3. Michael Stafford al. MIKEY Cardiol. 2019August 30;5(5):540-548. doi: 10.1001/[email or web address].2020.0013 Current Interpretive Data was last revised on 2023. Testing performed by: [facility], [address] [place] [address]., [address] Non-HDL Cholesterol 80 mg/dL [facility] Comment: Interpretive [...] last revised on 2017. Testing performed by: [address] [address] Chol/HDL ratio 3 [facility] Comment:Testing performed by : [address] [address] Blood 03/28/2024 9:46 AM BURRER MACHINE 03/28/2024 12:26 PM BURRER MACHINE us Darling Barillas MD LAB BLOOD ORDERABLES Final Result [address] Department [place] [address] * Comprehensive metabolic panel (03/28/2024 9:46 AM BURRER MACHINE) Sodium 138 135 - 145 mmol/L Comment:Testing performed by : [address] [address] Potassium, pl 4.6 3.3 - 4.9 mmol/L [facility] Comment:Testing performed by : [address] [address] Chloride 101 97 - 110 mmol/L [facility] CH Comment:Testing performed by : [address] [address] CO2 27 22 - 32 mmol/L [facility] CH Comment:Testing performed by : [address] [address] Anion gap 10 2 - 15 mmol/L [facility] Comment:Testing performed by : [address] [address] BUN 13 6 - 25 mg/dL [facility] CH Comment:Testing performed by : [address] [address] Creatinine 0.94 0.60 - 1.10 mg/dL [facility] CH Comment:Testing performed by : [address], [address] Glucose 107 70 - 199 mg/dL [facility] Comment: Interpretive Data Fasting glucose >/= 126 [...] was last revised 2022. Testing performed by: [facility], [address] [place] [address]., [address] Calcium 9.3 8.5 - 10.3 mg/dL [facility] Comment:Testing performed by : [address] [address] Bilirubin, total 0.7 0.1 - 1.2 mg/dL [facility] CH Comment:Testing performed by : [address] [address] Protein, pl 7.2 6.5 - 8.5 g/dL [facility] CH Comment:Testing performed by : [address] [address] Albumin 3.7 3.5 - 5.0 g/dL [facility] CH Comment:Testing performed by : [address] [address] Alk phos 68 40 - 130 Units/L [facility] CH Comment:Testing performed by : [address] [address] ALT 20 7 - 45 Units/L [facility] CH Comment:Testing performed by : [address] [address] AST 23 10 - 45 Units/L [facility] CH Comment:Testing performed by : [address] [address] Blood 03/28/2024 9:46 AM BURRER MACHINE 03/28/2024 12:26 PM BURRER MACHINE us Darling Barillas MD LAB BLOOD ORDERABLES Final Result [address] [place] [address] * Dexa Axial Skeleton Bone Density 1 or 2 Site (02/28/2024 9:31 AM CDT) Anatomical Region Laterality Modality Body N/A Other 02/28/2024 6:06 PM CDT Narrative 02/28/2024 6:09 PM CDT EXAM DESCRIPTION: DEXA AXIAL SKELETON BONE DENSITY 1 OR MORE SITES REASON FOR STUDY: 79 y/o year old F with given history of: menopause Screening Wildlife And Game Protector/Model: MicroCoal (S/N [id number]) CLINICAL INFORMATION: Current height: 64 inches Maximum [...] Star Santana M.D. MF: [email or web address] Report ID: [id number] Reading Location: [place] [address] Procedure Note Star Santana MD - 02/28/2024 EXAM DESCRIPTION: DEXA AXIAL SKELETON BONE DENSITY 1 OR MORE SITES REASON FOR STUDY: 79 y/o year old F with given history of: menopause Screening Wildlife And Game Protector/Model: Sequenta SL (S/N [id number]) CLINICAL INFORMATION: Current height: 64 inches Maximum [...] Star Santana M.D. MF: MARTHA Report ID: [id number] Reading Location: [id number] us Darling Barillas MD IM DXA PROCEDURES Final [...] Final Result * Colonoscopy (06/24/2023 8:40 AM BURRER MACHINE) Anatomical Region Laterality Modality Other Narrative Procedure Note Gianni Diaz MD - 06/24/2023 8:40 AM CST [facility] Patient Name: Estrella Bhagat Procedure Date: 06/24/2023 8:40 AM Date of : 1945 Admit Type: Outpatient Age: 78 Gender: Female Attending MD: Gianni Diaz M.D. [facility] 3 Note Status: Finalized Patient [...] procedure were verified by the physician, the human factors ergonomist and the diesel maintenance technician in the endoscopy suite. Mental Status [...] scope was passed under direct vision. TheColonoscope [id number] was introduced through the anus and advanced to the the cecum, identified by appendiceal orifice and ileocecal valve. The scopewas passed under direct vision. The PediatricColonoscope [id number] was introduced through the and advanced to [...] 8:40 AM Procedure Code(s): --- Professional --- 86699, Colonoscopy, flexible; with removal of tumor(s), polyp(s), or other lesion(s) by snare technique --- Technical --- 83253, Colonoscopy, flexible; with removal of tumor(s), polyp(s), [...] specified congenital malformations of intestine CPT copyright 202 [employer]. All rights reserved. The codes documented in this report are preliminary and upon chucking machine set up operator tool reviewmay be revised to meet current compliance requirements. Recognized by the [employer] [place] for promoting quality in endoscopy Gianni Diaz MD ENDOSCOPY PROCEDURES Final Resul t from Last 3 Months or Most Recently Relevant to Health Maintenance Insurance [facility] MEDICARE MEDICARE [facility] MEDICARE [facility] MEDICARE [facility] Advance Directives For more information, please contact: [phone] Documents on File Type Date Recorded Patient Adjuster Expl anation ADVANCE DIRECTIVE 09/26/2018 3:05 PM [...] 8:36 PM 03/06/2023 4:41 PM Care Teams Plasterer Maintenance Relationship Specialty Start Date End Date Darling Barillas MD PCP - General 07/30/16 Mary Anne Armando, OSMIN Preparator 03/09/17 Francis Zapata MD Consulting Physician Pulmonary Disease 03/09/17 Gianni Diaz MD [address] [place] [address] [place] [address] Consulting Physician Gastroenterology 03/14/23 Vicki Roe MD [address] [place] [address] Referring Physician Dermatology 06/14/23
--- OUTSIDE RECORDS SUMMARY | 2024-06-08 10:43 | XMS_ITS | Encounter Summary ---
Author Organization [facility] Address [address] [place] [address] Phone Care Team Providers Care Potato Chip Sacking Machine Operator Name Role Phone Darling Salgado MD Primary Care Provider [phone] Napoloen Villavicencio Unavailable Unavail able Mary Anne Armando OD Unavailable [phone] Francis Zapata MD Unavailable Maksim Regalado MD Unavailable + Sanya Andrews MD Unavailable [phone] Zak Borrero MD Unavailable Gianni Diaz MD Unavailable Vicki Roe MD Unavailable [phone] Encounter Details Date Type Department Care Team (Late st Contact Info) Description 12/07/2016 Orders Only [facility] [address] [place] [address] Darling Salgado MD [address] [place] [address] Chronic aggressive hepatitis (CMS/HCC) (Primary Dx) Social History Tobacco Use Types Packs/Day Years Used Date Smoking Tobacco: Never Assessed Comments Unknown Sex and Gender Information Value Date Recorded Sex Assigned at Not on file Legal Sex Female 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 Gender Identity Not on file Sexual Orientation Not on file documented as of this encounter Plan of Treatment Not on file documented as of this encounter Procedures Procedure Name Priority Date/Time Associated Diagnosis Comments CBC WITHOUT DIFFERENTIAL Routine 02/24/2017 2:03 PM CDT Chronic aggressive hepatitis (CMS/HCC) ERYTHROCYTE SEDIMENTATION RATE Routine 02/24/2017 1:59 PM CDT Chronic aggressive hepatitis (CMS/HCC) COMPREHENSIVE METABOLIC PANEL Routine 02/24/2017 1:59 PM CDT Chronic aggressive hepatitis (CMS/HCC) documented in this encounter Results * CBC without differential (02/24/2017 2:03 PM CDT) WBC 6.3 3.8 - 10.8 Thousand/uL [facility] [place] RBC, POC 4.39 3.80 - 5.10 Million/uL [facility] [place] Hgb 13.4 11.7 - 15.5 g/dL [facility] [place] Hct 39.7 35.0 - 45.0 % [facility] [place] MCV 90.4 80.0 - 100.0 fL [facility] [place] MCH 30.5 27.0 - 33.0 pg [facility] [place] MCHC 33.8 32.0 - 36.0 g/dL [facility] [place] Rdw 13.1 11.0 - 15.0 % [facility] [place] Platelets 292 140 - 400 Thousand/uL [facility] [place] MPV 9.4 7.5 - 12.5 fL [facility] [place] Blood specimen (specimen) 02/24/2017 2:03 PM CDT 02/24/2017 2:03 PM CDT Narrative Resulting Agency Comment Performing Organization Information: Site ID: [id number] Name: [facility] Address: [address] [place] [address] Director: Inder Kurtz D.O., MPH us Darling Salgado MD LAB BLOOD ORDERABLES Final Result [facility] [place] * (ABNORMAL) Comprehensive metabolic panel (02/24/2017 1:59 PM CDT) Glucose 98 65 - 99 mg/dL [facility] [place] Comment: Fasting reference interval BUN 17 7 - 25 mg/dL [facility] [place] Creatinine 0.82 0.60 - 0.93 mg/dL [facility] [place] Comment: For patients >49 years of age, the reference limit for Creatinine is approximately 13% higher for people identified as -[place]. eGFR NON-AFR. YEMENI 72 > OR = 60 mL/min/1 .73m2 [facility] [place] EGFR 83 > OR = 60 mL/min/1 .73m2 [facility] [place] BUN/creat ratio NOT APPLICABLE 6 - 22 (calc) [facility] [place] Sodium 141 135 - 146 mmol/L [facility] [place] Potassium, pl 4.6 3.5 - 5.3 mmol/L [facility] [place] Chloride 104 98 - 110 mmol/L [facility] [place] CO2 32(H) 20 - 31 mmol/L [facility] [place] Calcium 9.9 8.6 - 10.4 mg/dL [facility] [place] Protein, sr 7.0 6.1 - 8.1 g/dL [facility] [place] Albumin 4.3 3.6 - 5.1 g/dL [facility] [place] Globulin 2.7 1.9 - 3.7 g/dL (calc) [facility] [place] Alb/glob ratio 1.6 1.0 - 2.5 (calc) [facility] [place] Bilirubin, total 0.7 0.2 - 1.2 mg/dL [facility] [place] Alk phos 53 33 - 130 U/L [facility] [place] AST 25 10 - 35 U/L [facility] [place] ALT (SGPT) 25 6 - 29 U/L [facility] [place] Blood specimen (specimen) 02/24/2017 1:59 PM CDT 02/24/2017 2:00 PM CDT Narrative Resulting Agency Comment Performing Organization Information: Site ID: [id number] Name: [facility] Address: [address] [address] Director: Inder Kurtz D.O., MPH Darling Salgado MD LAB BLOOD ORDERABLES Final Result [facility] * Erythrocyte sedimentation rate (02/24/2017 1:59 PM CDT) Erythrocyte sedimentation rate 19 < OR = 30 mm/h [facility] Blood specimen (specimen) 02/24/2017 1:59 PM CDT 02/24/2017 2:00 PM CDT Narrative Resulting Agency Comment Performing Organization Information: Site ID: [id number] Name: [facility] Address: [address] [address] Director: Inder Kurtz D.O., MPH us Darling Salgado MD LAB BLOOD ORDERABLES Final Result [facility] documented in this encounter Visit Diagnoses Diagnosis Chronic aggressive hepatitis (HCC)- Primary Other chronic hepatitis documented in this encounter Additional Health Concerns Infection Onset Date Last Indicated Resolved Time COVID: Suspected 07/09/2020 07/09/2020 07/09/2020 2:11 PM OPERATING ROOM RN COVID: Suspected 12/01/2021 12/01/2021 12/01/2021 3:02 PM CDT COVID: Suspected 06/24/2022 06/24/2022 06/24/2022 8:45 AM OPERATING ROOM RN documented as of this encounter Care Teams Potato Chip Sacking Machine Operator Relationship Specialty Start Date End Date Darling Salgado MD PCP - General 07/30/16 Napoleon Villavicencio Gastroenterology 03/05/17 06/13/23 Mary Anne Armando OD Sales Receptionist 03/09/17 Francis Zapata MD Consulting Physician Pulmonary Disease 03/09/17 Maksim Regalado MD [address] [place] [address] Consulting Physician Gastroenterology 03/09/17 06/13/23 Sanya Andrews MD [address] [place] [address] Gastroenterology 03/09/17 06/13/23 Zak Borrero MD [address] [place] [address] Surgeon Orthopedic Surgery 05/13/17 06/13/23 Gianni Diaz MD [address] [facility] [address] [place] [address] Consulting Physician Gastroenterology 03/14/23 Vicki Roe MD [address] [place] [address] Referring Physician Dermatology 06/14/23 documented as of this encounter
== END ==
LOC: ANHLAB 09:57
PROVIDERS: PCP Internal Medicine Geriatric Medicine; Visit Provider Plastic Surgery
DX: L90.5 Scar conditions and fibrosis of skin (principal); C44.92 Squamous cell carcinoma of skin, unspecified
CPT/HCPCS: 88305